=== PATIENT | female | born 1940 | race Caucasian/White ===

== ENCOUNTER 2017-11-01 11:39 | Emergency (ER) | payer OTHER, MEDICAID ==
[~2017-11-01] VITALS: Ht 162.6 cm; Wt 117.9 kg
[2017-11-01 13:15] LABS: Basophils # (auto) 0.1 uL; Basophils % (auto) 0.8 % (0.0-2.0); Eosinophils # (auto) 0.1 uL; Eosinophils % (auto) 0.9 % (0.0-7.0); Hematocrit 43.7 % (36.0-46.0); Hemoglobin 14.6 g/dL (12.2-16.2); Lymphocytes # (auto) 1.1 uL; Lymphocytes % (auto) 13.3 % (10.0-50.0); Mean Corpuscular Hemoglobin 31.8 pg (28.0-32.0); Mean Corpuscular Hgb Conc. 33.5 g/dL (32.0-36.0); Mean Corpuscular Volume 95.1 fL (80.0-100.0); Monocytes # (auto) 0.6 uL; Monocytes % (auto) 8.1 % (0.0-12.0); Neutrophils # (auto) 6.1 uL; Neutrophils % (auto) 76.9 % (37.0-80.0); Nucleated Red Blood Cells % 0.1 %; Platelet Count (auto) 194 10^3/uL (140-450); Red Cell Distribution Width 15.6 % (11.8-14.3)
[2017-11-01 13:23] LABS: INR 1.34 (0.9-1.15); Prothrombin Time 14.1 sec (9.27-12.13)
[2017-11-01 13:35] LABS: Alanine Aminotransferase 26 U/L (13-56); Albumin 3.2 g/dL (3.4-5.0); Alkaline Phosphatase 65 U/L (45-117); Anion Gap 9 (5-15); Aspartate Aminotransferase 22 U/L (15-37); BUN/Creatinine Ratio 17.6; Blood Urea Nitrogen 18 mg/dL (7-18); Calcium 8.6 mg/dL (8.5-10.1); Carbon Dioxide 24 mmol/L (21-32); Chloride 104 mmol/L (98-107); GFR African American 67 mL/min; GFR Non-African American 56 mL/min; Glucose 99 mg/dL (74-106); Magnesium 2.5 mg/dL (1.6-2.6); Potassium 3.9 mmol/L (3.5-5.1); Sodium 137 mmol/L (136-145); Total Protein 7.6 g/dL (6.4-8.2)
[2017-11-01] MEDS ORDERED: ACETAMINOPHEN 325 MG TAB PO ONE (19:15)
[2017-11-01 20:48] VITALS: BP 132/68
== END 2017-11-01 20:57 | disposition home or self-care (01) ==
LOC: ER 11:39
DX: S16.1XXA Strain of muscle, fascia and tendon at neck level, initial encounter (principal); R10.2 Pelvic and perineal pain; M54.5 Low back pain; I48.91 Unspecified atrial fibrillation; E78.5 Hyperlipidemia, unspecified; I10 Essential (primary) hypertension; Z88.8 Allergy status to other drugs, medicaments and biological substances; Z90.710 Acquired absence of both cervix and uterus; W01.0XXA Fall on same level from slipping, tripping and stumbling without subsequent striking against object, initial encounter; Y93.01 Activity, walking, marching and hiking; Y99.8 Other external cause status; Y92.89 Other specified places as the place of occurrence of the external cause
CPT/HCPCS: 36415; 70450; 71046; 72100; 72125; 72192; 73502; 80053; 83735; 84484; 85025; 85610; 93005

== ENCOUNTER 2021-09-08 11:16 | Emergency (ER) | payer OTHER, MEDICAID ==
[~2021-09-08] VITALS: Ht 160 cm; Wt 113.4 kg
[2021-09-08] MEDS ORDERED: HYDROcodone-ACET 5/325MG TAB PO ONE (11:45)
[2021-09-08 12:06] VITALS: BP 144/87
[2021-09-08] MEDS ORDERED: IBUP800T27 PO (15:05)
== END 2021-09-08 18:23 | disposition home or self-care (01) ==
LOC: EDBD 11:16 → ER 11:16
DX: S00.83XA Contusion of other part of head, initial encounter (principal); M17.0 Bilateral primary osteoarthritis of knee; M25.462 Effusion, left knee; M25.461 Effusion, right knee; E78.5 Hyperlipidemia, unspecified; I10 Essential (primary) hypertension; Z90.710 Acquired absence of both cervix and uterus; W18.39XA Other fall on same level, initial encounter; Y93.89 Activity, other specified; Y92.89 Other specified places as the place of occurrence of the external cause; Y99.8 Other external cause status
CPT/HCPCS: 70450; 70486; 73560; 93005

== ENCOUNTER 2022-04-24 18:23 | Inpatient (IN) | payer OTHER, MEDICAID ==
[~2022-04-24] VITALS: Ht 162.6 cm; Wt 114.5 kg
[~2022-04-24 18:23] MED LIST: IBUP800T27 PO
[2022-04-24] MEDS ORDERED: KETOROLAC TROMETH 30 MG/ML 1ML VIAL IV ONE (21:30)
[2022-04-24] MEDS ORDERED: DexAMETHasone SOD PHOS 10MG/1ML VIAL INJ IV ONE (21:30)
[2022-04-24] MEDS ORDERED: MORPHINE SULFATE 4 MG/ML SYR/VIAL IV ONE (23:30)
[2022-04-25] MEDS ORDERED: HYDROcodone-ACET 5/325MG TAB PO PRN (00:45)
[2022-04-25] MEDS ORDERED: ACETAMINOPHEN 325 MG TAB PO PRN (00:45)
[2022-04-25] MEDS ORDERED: ONDANSETRON HCL 4 MG/2 ML VIAL IV PRN (00:45)
[2022-04-25] MEDS ORDERED: NITROGLYCERIN 0.4 MG SL TAB SL PRN (00:45)
[2022-04-25] MEDS ORDERED: DOCUSATE SOD 100 MG CAP PO PRN (00:45)
[2022-04-25] MEDS ORDERED: MORPHINE SULFATE INJ 2 MG/ml SYRG IV PRN ×2 (00:45)
[2022-04-25 02:07] LABS: Basophils # (auto) 0.1 10 ^3/uL (0-0.2); Basophils % (auto) 1.4 % (0.0-2.0); Eosinophils # (auto) 0.1 10 ^3/uL (0-0.8); Eosinophils % (auto) 0.8 % (0.0-7.0); Hemoglobin 13.2 g/dL (12.2-16.2); Lymphocytes # (auto) 1.1 10 ^3/uL (0.4-5.4); Lymphocytes % (auto) 16.1 % (10.0-50.0); Mean Corpuscular Hemoglobin 29.6 pg (28.0-32.0); Mean Corpuscular Hgb Conc. 32.1 g/dL (32.0-36.0); Mean Corpuscular Volume 92.4 fL (80.0-100.0); Monocytes # (auto) 0.2 10 ^3/uL (0-1.3); Monocytes % (auto) 2.9 % (0.0-12.0); Neutrophils # (auto) 5.3 10 ^3/uL (1.6-8.6); Neutrophils % (auto) 78.8 % (37.0-80.0); Nucleated Red Blood Cells % 0.2 %; Red Blood Cells 4.44 10^6/uL (4.0-5.20); Red Cell Distribution Width 15.2 % (11.8-14.3); White Blood Cell 6.7 10^3/uL (4.4-10.8)
[2022-04-25 02:11] LABS: Albumin 3.5 g/dL (3.4-5.0); BUN/Creatinine Ratio 27.7; Calcium 9.4 mg/dL (8.5-10.1); Potassium 4.3 mmol/L (3.5-5.1)
[2022-04-25 02:14] LABS: Bilirubin, Total 0.5 mg/dL (0.2-1.0); Total Protein 7.6 g/dL (6.4-8.2)
[2022-04-25] MEDS: SODIUM CHLOR 0.9% PF (SALINE LOCK) 10ML VIAL/SYR IV SCH ×3 (05:44→22:35)
[2022-04-25] MEDS ORDERED: LEVO88TA2 PO (09:07)
[2022-04-25] MEDS: FAMOTIDINE (10MG/ML) 2ML VL IV SCH (11:08)
[2022-04-25] MEDS: ZINC SULFATE 220mg CAP or TAB PO SCH (11:08)
[2022-04-25] MEDS: ASPirin 81 mg TAB PO SCH (11:08)
[2022-04-25] MEDS: ASCORBIC ACID 500 MG TAB PO SCH ×2 (11:08→22:31)
[2022-04-25] MEDS ORDERED: POTA-264 PO (13:09)
[2022-04-25] MEDS ORDERED: FURO1TAB33 PO (13:09)
[2022-04-25] MEDS ORDERED: ATEN50TA PO (13:09)
[2022-04-25] MEDS ORDERED: RIVA20TA PO (13:09)
[2022-04-25] MEDS ORDERED: AMLO-489 PO (13:09)
[2022-04-25] MEDS ORDERED: TRAM50TA2 PO (13:09)
[2022-04-25] MEDS ORDERED: LOSA-69 PO (13:09)
[2022-04-25] MEDS ORDERED: BACL10TA PO (13:09)
[2022-04-25 18:55] VITALS: BP 130/73
[2022-04-25] MEDS ORDERED: ALPR0.25 PO (20:31)
[2022-04-25 22:00] VITALS: BP 136/71
[2022-04-25] MEDS: traMADol HCL 50 MG TAB PO SCH (22:29)
[2022-04-25] MEDS: BACLOFEN 10 MG TAB PO SCH (22:30)
[2022-04-25] MEDS: IBUPROFEN 800 MG TAB PO SCH (22:30)
[2022-04-25] MEDS: LOSARTAN POTASSIUM 50 MG TAB PO SCH (22:30)
[2022-04-25] MEDS: ATENOLOL 50 MG TAB PO SCH (22:31)
[2022-04-26 05:00] VITALS: BP 124/69
[2022-04-26 06:30] LABS: Basophils # (auto) 0.1 10 ^3/uL (0-0.2); Basophils % (auto) 1.1 % (0.0-2.0); Eosinophils # (auto) 0 10 ^3/uL (0-0.8); Eosinophils % (auto) 0.1 % (0.0-7.0); Hematocrit 37.6 % (36.0-46.0); Hemoglobin 12.8 g/dL (12.2-16.2); Lymphocytes # (auto) 1.5 10 ^3/uL (0.4-5.4); Lymphocytes % (auto) 14.1 % (10.0-50.0); Mean Corpuscular Hemoglobin 30.5 pg (28.0-32.0); Mean Corpuscular Volume 89.6 fL (80.0-100.0); Monocytes # (auto) 0.5 10 ^3/uL (0-1.3); Monocytes % (auto) 4.6 % (0.0-12.0); Neutrophils # (auto) 8.5 10 ^3/uL (1.6-8.6); Neutrophils % (auto) 80.1 % (37.0-80.0); Nucleated Red Blood Cells % 0.2 %; Red Cell Distribution Width 14.8 % (11.8-14.3); White Blood Cell 10.6 10^3/uL (4.4-10.8)
[2022-04-26] MEDS: IBUPROFEN 800 MG TAB PO SCH ×2 (06:38→14:00)
[2022-04-26] MEDS: SODIUM CHLOR 0.9% PF (SALINE LOCK) 10ML VIAL/SYR IV SCH ×2 (06:38→15:21)
[2022-04-26] MEDS ORDERED: LEVOTHYROXINE SODIUM 88 MCG TAB PO SCH (07:00)
[2022-04-26 07:01] LABS: Potassium 4.7 mmol/L (3.5-5.1)
[2022-04-26 07:07] LABS: Albumin 3.1 g/dL (3.4-5.0); BUN/Creatinine Ratio 31.2; Calcium 9.2 mg/dL (8.5-10.1)
[2022-04-26 07:10] LABS: Bilirubin, Total 0.7 mg/dL (0.2-1.0); Total Protein 6.8 g/dL (6.4-8.2)
[2022-04-26 08:00] VITALS: BP 139/64
[2022-04-26 08:30] VITALS: BP 139/64
[2022-04-26] MEDS: ZINC SULFATE 220mg CAP or TAB PO SCH (09:34)
[2022-04-26] MEDS: ASCORBIC ACID 500 MG TAB PO SCH (09:34)
[2022-04-26] MEDS: traMADol HCL 50 MG TAB PO SCH (09:35)
[2022-04-26] MEDS: BACLOFEN 10 MG TAB PO SCH (09:36)
[2022-04-26] MEDS: LOSARTAN POTASSIUM 50 MG TAB PO SCH (09:36)
[2022-04-26] MEDS: ASPirin 81 mg TAB PO SCH (09:37)
[2022-04-26] MEDS: ATENOLOL 50 MG TAB PO SCH (09:38)
[2022-04-26] MEDS: FAMOTIDINE (10MG/ML) 2ML VL IV SCH (09:39)
[2022-04-26] MEDS ORDERED: RIVAROXABAN 20 MG TAB PO SCH (10:00)
[2022-04-26] MEDS ORDERED: amLODIPine BESYLATE 5 MG TAB PO SCH (10:00)
[2022-04-26] MEDS ORDERED: POTASSIUM CHL 10 Meq TABLET PO SCH (10:00)
[2022-04-26] MEDS ORDERED: FUROSEMIDE 20 MG TAB PO SCH (10:00)
[2022-04-26 12:30] VITALS: BP 128/68
[2022-04-26 16:15] VITALS: BP 113/44
[2022-04-26 16:45] VITALS: BP 134/61
== END 2022-04-26 19:00 | disposition home health service (06) | DRG 552 ==
LOC: ER 18:23 → EDUNIT# 18:23 → EDBD 18:23 → OVERFLOW 04-25 00:36 → WEST WING 04-25 18:48
PROVIDERS: ADMIT Nurse Practitioner Family; ATTEND Internal Medicine
DX: M54.9 Dorsalgia, unspecified (principal); I48.20 Chronic atrial fibrillation, unspecified; I10 Essential (primary) hypertension; E78.5 Hyperlipidemia, unspecified; G89.29 Other chronic pain; Z20.822 Contact with and (suspected) exposure to COVID-19; Z90.710 Acquired absence of both cervix and uterus
CPT/HCPCS: 36415; 72125; 80053; 85025; 87426; 96374; 96375; G0378; J1100; J1885; J3490

== ENCOUNTER 2022-10-03 10:09 | Emergency (ER) | payer OTHER, MEDICAID ==
[~2022-10-03] VITALS: Ht 162.6 cm; Wt 81.8 kg
[~2022-10-03 10:09] MED LIST changes: +ALPR0.25 PO; +AMLO1TAB22 PO; +ATEN50TA PO; +BACL10TA PO; +FURO1TAB33 PO; -IBUP800T27 PO; +LEVO88TA2 PO; +LOSA50TA46 PO; +POTA-264 PO; +RIVA20TA PO; +TRAM50TA2 PO
[2022-10-03 10:45] LABS: Basophils # (auto) 0.1 10 ^3/uL (0-0.2); Basophils % (auto) 1.3 % (0.0-2.0); Eosinophils # (auto) 0.1 10 ^3/uL (0-0.8); Eosinophils % (auto) 1.4 % (0.0-7.0); Hematocrit 41.5 % (36.0-46.0); Hemoglobin 13.8 g/dL (12.2-16.2); Lymphocytes # (auto) 1.7 10 ^3/uL (0.4-5.4); Lymphocytes % (auto) 31.2 % (10.0-50.0); Mean Corpuscular Hemoglobin 30.3 pg (28.0-32.0); Mean Corpuscular Hgb Conc. 33.3 g/dL (32.0-36.0); Mean Corpuscular Volume 90.9 fL (80.0-100.0); Monocytes # (auto) 0.4 10 ^3/uL (0-1.3); Monocytes % (auto) 7.5 % (0.0-12.0); Neutrophils # (auto) 3.3 10 ^3/uL (1.6-8.6); Neutrophils % (auto) 58.6 % (37.0-80.0); Nucleated Red Blood Cells % 0.1 %; Red Blood Cells 4.56 10^6/uL (4.0-5.20); Red Cell Distribution Width 14.7 % (11.8-14.3); White Blood Cell 5.6 10^3/uL (4.4-10.8)
[2022-10-03 10:49] VITALS: PULSE 68; RESP 18; TEMP 98.2; O2SAT 97
[2022-10-03 10:57] LABS: Albumin 3.7 g/dL (3.4-5.0); Calcium 8.8 mg/dL (8.5-10.1); Potassium 3.9 mmol/L (3.5-5.1)
[2022-10-03 11:00] LABS: BUN/Creatinine Ratio 21.6 (10.0-20.0); Bilirubin, Total 0.8 mg/dL (0.2-1.0)
[2022-10-03 11:10] LABS: INR 1.52 (0.9-1.15); Partial Thromboplastin Time 40.6 SEC (24.5-34.5)
[2022-10-03] MEDS ORDERED: CYCLOBENZAPRINE HCL 10 MG TAB PO ONE (11:30)
[2022-10-03] MEDS ORDERED: ACETAMINOPHEN 325 MG TAB PO ONE (11:30)
[2022-10-03] MEDS ORDERED: PRED20TA2 PO (12:01)
[2022-10-03] MEDS ORDERED: CYCL-611 PO (12:01)
[2022-10-03 12:55] VITALS: BP 161/73; PULSE 87; RESP 11; O2SAT 99
== END 2022-10-03 13:09 | disposition home or self-care (01) ==
LOC: ER 10:09 → EDBD 10:09 → ER 12:56
DX: R07.89 Other chest pain (principal); I10 Essential (primary) hypertension; E78.5 Hyperlipidemia, unspecified; I48.91 Unspecified atrial fibrillation; E03.9 Hypothyroidism, unspecified; Z90.710 Acquired absence of both cervix and uterus; Z88.8 Allergy status to other drugs, medicaments and biological substances; Z79.899 Other long term (current) drug therapy
CPT/HCPCS: 36415; 71045; 71250; 80053; 83880; 84484; 85025; 85610; 85730; 93005

== ENCOUNTER 2023-09-21 16:15 | Emergency (ER) | payer OTHER, MEDICAID ==
[~2023-09-21] VITALS: Ht 167.6 cm; Wt 113.6 kg
[~2023-09-21 16:15] MED LIST changes: +CYCL-611 PO; +LOSA-534 PO; -LOSA50TA46 PO; +PRED20TA2 PO
[2023-09-21 17:46] LABS: Basophils # (auto) 0.1 10 ^3/uL (0-0.2); Basophils % (auto) 0.9 % (0.0-2.0); Eosinophils # (auto) 0.1 10 ^3/uL (0-0.8); Eosinophils % (auto) 1.6 % (0.0-7.0); Hematocrit 37.5 % (36.0-46.0); Hemoglobin 12.6 g/dL (12.2-16.2); Lymphocytes # (auto) 1.5 10 ^3/uL (0.4-5.4); Lymphocytes % (auto) 25.1 % (10.0-50.0); Mean Corpuscular Hgb Conc. 33.7 g/dL (32.0-36.0); Mean Corpuscular Volume 94.9 fL (80.0-100.0); Monocytes # (auto) 0.3 10 ^3/uL (0-1.3); Monocytes % (auto) 5.7 % (0.0-12.0); Neutrophils % (auto) 66.7 % (37.0-80.0); Nucleated Red Blood Cells % 0.1 %; Red Blood Cells 3.95 10^6/uL (4.0-5.20)
[2023-09-21 18:07] LABS: Chloride 108 mmol/L (98-107); Potassium 4.3 mmol/L (3.5-5.1); Sodium 139 mmol/L (136-145)
[2023-09-21 18:08] LABS: Anion Gap 6 (5-15); Calcium 9.4 mg/dL (8.7-10.4); Carbon Dioxide 25 mmol/L (20-30)
[2023-09-21 18:13] LABS: BUN/Creatinine Ratio 19.1 (10.0-20.0); Blood Urea Nitrogen 17 mg/dL (9-23); Glucose 108 mg/dL (74-106)
[2023-09-21] MEDS: SODIUM CHLORIDE 0.9% 1,000 ML IV ONE (19:00)
[2023-09-21 19:01] VITALS: PULSE 82; RESP 19; O2SAT 97
[2023-09-21 19:25] VITALS: PULSE 79; RESP 14; O2SAT 92
[2023-09-21] MEDS: LABETALOL HCL 20 MG/4 ML VL IV ONE (20:16)
[2023-09-21] MEDS: ALBUTEROL SULF 2.5 MG/0.5ML(0.5%) NEB SOLN NEB ONE (20:53)
[2023-09-21] MEDS: IPRATROPIUM BROM 0.5 MG/2.5ML INH SOL NEB ONE (20:54)
[2023-09-21] MEDS: ONDANSETRON ODT 4 MG TAB PO ONE (21:15)
[2023-09-21] MEDS: ACETAMINOPHEN 325 MG TAB PO ONE (21:16)
[2023-09-21 21:25] VITALS: TEMP 97.8
[2023-09-22] VITALS: BP 154/74; PULSE 87; RESP 16; O2SAT 94
== END 2023-09-22 01:06 | disposition home or self-care (01) ==
LOC: ER 16:15 → EDBD 16:15 → ER 09-22 01:06
DX: E86.0 Dehydration (principal); R11.2 Nausea with vomiting, unspecified; I10 Essential (primary) hypertension; I48.91 Unspecified atrial fibrillation; E78.5 Hyperlipidemia, unspecified; Z90.710 Acquired absence of both cervix and uterus; Z88.8 Allergy status to other drugs, medicaments and biological substances; Z79.899 Other long term (current) drug therapy
CPT/HCPCS: 36415; 71045; 76705; 80048; 84484; 85025; 93005; 94640; 96361; 96374; 99285; J7030; J7644

== ENCOUNTER 2023-09-23 20:14 | Emergency (ER) | payer OTHER, MEDICAID ==
[~2023-09-23] VITALS: Ht 162.6 cm; Wt 104.0 kg
[2023-09-23] MEDS: SODIUM CHLORIDE 0.9% 1,000 ML IV ONE (20:30)
[2023-09-23 20:55] VITALS: RESP 12; O2SAT 96
[2023-09-23 20:56] LABS: Basophils # (auto) 0.1 10 ^3/uL (0-0.2); Basophils % (auto) 1.3 % (0.0-2.0); Eosinophils # (auto) 0.1 10 ^3/uL (0-0.8); Eosinophils % (auto) 2.1 % (0.0-7.0); Hematocrit 39.3 % (36.0-46.0); Hemoglobin 13.2 g/dL (12.2-16.2); Lymphocytes % (auto) 31.6 % (10.0-50.0); Mean Corpuscular Hemoglobin 31.7 pg (28.0-32.0); Mean Corpuscular Hgb Conc. 33.5 g/dL (32.0-36.0); Mean Corpuscular Volume 94.6 fL (80.0-100.0); Monocytes # (auto) 0.5 10 ^3/uL (0-1.3); Monocytes % (auto) 8.1 % (0.0-12.0); Neutrophils # (auto) 3.7 10 ^3/uL (1.6-8.6); Neutrophils % (auto) 56.9 % (37.0-80.0); Red Blood Cells 4.16 10^6/uL (4.0-5.20); Red Cell Distribution Width 13.7 % (11.8-14.3); White Blood Cell 6.4 10^3/uL (4.4-10.8)
[2023-09-23 21:10] LABS: INR 1.25 (0.9-1.15); Partial Thromboplastin Time 31.6 SEC (24.5-34.5)
[2023-09-23 21:12] LABS: Alanine Aminotransferase 29 U/L (7-40); Albumin 4.1 g/dL (3.2-4.8); Alkaline Phosphatase 82 U/L (46-116); Anion Gap 7 (5-15); Aspartate Aminotransferase 30 U/L (13-40); BUN/Creatinine Ratio 18.3 (10.0-20.0); Bilirubin, Total 0.7 mg/dL (0.2-1.0); Blood Urea Nitrogen 20 mg/dL (9-23); Calcium 9.4 mg/dL (8.7-10.4); Carbon Dioxide 26 mmol/L (20-30); Chloride 105 mmol/L (98-107); Glucose 84 mg/dL (74-106); Potassium 4.3 mmol/L (3.5-5.1); Sodium 138 mmol/L (136-145); Total Protein 6.8 g/dL (5.7-8.2)
[2023-09-23 22:30] LABS: Urine Bacteria None Seen /hpf (None Seen)
[2023-09-23 22:47] LABS: Urine Blood Negative /uL (Negative); Urine Clarity Clear (Clear); Urine Hyaline Cast FEW /lpf (0 - 2); Urine Mucus FEW (None Seen); Urine Protein, UAD Negative (Negative); Urine Specific Gravity 1.006 (1.001-1.035); Urine Urobilinogen Normal (Negative); Urine WBC 3 /hpf (0 - 5); Urine pH 5.5 (5.0-9.0)
[2023-09-23 22:51] LABS: Urine Color STRAW (Yellow)
[2023-09-24] VITALS: BP 130/47; PULSE 74; RESP 21; TEMP 97.8; O2SAT 97
[2023-09-24] MEDS ORDERED: MECL25CH85 PO (01:11)
== END 2023-09-24 02:11 | disposition home or self-care (01) ==
LOC: ER 20:14 → EDBD 20:14 → ER 09-24 02:11
DX: R42 Dizziness and giddiness (principal); I10 Essential (primary) hypertension; Z88.8 Allergy status to other drugs, medicaments and biological substances; Z79.52 Long term (current) use of systemic steroids; Z79.899 Other long term (current) drug therapy
CPT/HCPCS: 36415; 70450; 74176; 80053; 81001; 84484; 85025; 85610; 85730; 93005; 96360; 99284; J7030

== ENCOUNTER 2024-03-08 16:51 | Inpatient (IN) | payer OTHER, MEDICAID ==
[~2024-03-08] VITALS: Ht 162.6 cm; Wt 100.0 kg
[~2024-03-08 16:51] MED LIST changes: +MECL25CH85 PO
[2024-03-08 17:07] VITALS: BP 177/80; PULSE 84; RESP 18; O2SAT 97
[2024-03-08] MEDS ORDERED: METOCLOPRAMIDE HCL 5MG/ml INJ 2ml VIAL IV ONE (18:30)
[2024-03-08] MEDS ORDERED: SODIUM CHLORIDE 0.9% 1,000 ML IV ONE (18:30)
[2024-03-08] MEDS ORDERED: ACETAMINOPHEN 325 MG TAB PO ONE (18:30)
--- NOTE | 2024-03-08 18:48 | DVH ---
CHEST RADIOGRAPH Indication: ams, Technique: Frontal and lateral view of the chest was obtained Comparison: CS2 on DOS: 04/24/22, RKNE2 on DOS: 09/08/21 FINDINGS: Lines and Tubes: None Lungs: Clear Pleura: No effusion. No pneumothorax. Cardiomediastinal contours: Unremarkable Bones: Unremarkable IMPRESSION: 1. No evidence of acute disease.
--- NOTE | 2024-03-08 18:57 | DVH ---
EXAM: CT HEAD WITHOUT CONTRAST INDICATION: HEADACHE TECHNIQUE: CT of the head without intravenous contrast. Radiation Dose : 1. Head: CT Dose: CTDI volume is 54 mGy. Dose-length product is 860 mGy*cm The dose indicators for CT are the volume Computed Tomography (CT) Dose Index (CTDIvol) and the Dose Length Product (DLP), and are measured in units of mGy and mGy-cm, respectively. These indicators are not patient dose, but values generated from the CT scanner acquisition factors. The report includes radiation exposure data for exposures received during this examination. COMPARISON: CT HEAD WITHOUT CONTRAST on DOS: 09/23/23, CT CHEST WITHOUT CONTRAST on DOS: 10/03/22, CERV ICAL WITHOUT CONTRAST on DOS: 04/24/22 FINDINGS: There is no evidence of acute intracranial hemorrhage, extra-axial collection, mass effect, midline s hift, herniation or hydrocephalus. The ventricles, sulci and cisterns are age appropriate. The blair-white differentiation is intact. Patchy periventricular and subcortical white matter hypoattenuation is nonspecific but may be related to small vessel ischemic disease. The visualized paranasal sinuses and mastoid air cells are clear. The surrounding soft tissues and osseous structures are unremarkable. IMPRESSION: No acute intracranial abnormality. Moderate chronic small vessel ischemic disease and age related atr ophy. Partially empty sella.
--- NOTE | 2024-03-08 19:12 | ED.PDOC ---
HPI (NEURO) HPI Comments 83y F who presents to the ED via EMS for chief complaint of generalized weakness. Pt states she has been having frontal headache since 1 days prior and states she has been having increased generalized weakness since. Pt states today, she was on phone with daughter who states she noted pt was confused on the phone and EMS was called to the scene. Pt now in the ED, is alert and oriented x 4 and able to answer all questions. Pt has no changes in vision, gait or speech are noted. Pt has noted history of TIA's and states she takes blood thinner Xarelto for history of AFIB. Pt otherwise denies any other symptoms at this time. Chief Complaint: Headache Time Seen by MD: 19:08 Primary Care Provider: none Reviewed Notes: Nurses Notes Information Source: Patient, DrDominick Office, Emergency Med Personnel Mode of Arrival: EMS Brought in by: EMS Past Medical History PAST MEDICAL HISTORY: AFIB, High Lipids, HTN Surgical History: Hysterectomy BODY FITTER History: Denies all BODY FITTER Hx Family History Family History: Reviewed,noncontributory to illness Social History Smoker: Non-Smoker Alcohol: Denies ETOH Use Drugs: Denies Drug Use Lives In: Home Constitutional: reports: malaise, weakness; denies: chills, diaphoresis, fatigue, fever, sweats, others EENTM: denies: blurred vision, double vision, ear bleeding, ear discharge, ear drainage, ear pain, ear ringing, eye pain, eye redness, hearing loss, mouth pain, mouth swelling, nasal discharge, nose bleeding, nose congestion, nose pain, photophobia, tearing, throat pain, throat swelling, voice changes, others Respiratory: denies: cough, hemoptysis, orthopnea, SOB at rest, shortness of breath, SOB with excertion, stridor, wheezing, others Cardiovascular: denies: chest pain, dizzy spells, diaphoresis, Dyspnea on exertion, edema, irregular heart beat, left arm pain, lightheadedness, palpitations, PND, syncope, others Gastrointestinal: denies: abdomen distended, abdominal pain, blood streaked bowels, constipated, diarrhea, dysphagia, difficulty swallowing, hematemesis, melena, nausea, poor appetite, poor fluid intake, rectal bleeding, rectal pain, vomiting, others Genitourinary: denies: abnormal vagina bleeding, burning, dyspareunia, dysuria, flank pain, frequency, hematuria, incontinence, pain, , vagina discharge, urgency, others Neurological: reports: headache; denies: dizziness, fainting, left sided numbness, left sided weakness, numbness, paresthesia, pre-existing deficit, right sided numbness, right sided weakness, seizure, speech problems, tingling, tremors, weakness, others Musculoskeletal: denies: back pain, gout, joint pain, joint swelling, muscle pain, muscle stiffness, neck pain, others Integumetry: denies: bruises, change in color, change in hair/nails, dryness, laceration, lesions, lumps, rash, wounds, others Allergic/Immunocompromised: denies: Difficulty Healing, Frequent Infections, Hives, Itching, others Hematologic/Lymphatic: denies: anemia, blood clots, easy bleeding, easy bruising, swollen glands, others Endocrine: denies: excessive hunger, excessive sweating, excessive thirst, excessive urination, flushing, intolerance to cold, intolerance to heat, unexplained weight gain, unexplained weight loss, others Psychiatric: denies: anxiety, bipolar disorder, depression, hopeless, panic disorder, schizophrenia, sleepless, suicidal, others All Other Systems: Reviewed and Negative Physical Exam General Appearance: Other (Indicate ill-appearing) HEENT: PERRL/EOMI Neck: Non-Tender Respiratory: No Accessory Muscle Use Cardiovascular: Other (Irregular) Breast Exam: Deferred Gastrointestinal: Non Tender Genitalia: Deferred Pelvic: Deferred Rectal: Deferred Extremities: Non-tender Neurologic: No Motor Deficits Cerebellar Function: NOT DONE Reflexes: NOT DONE Skin: Dry, Normal Color, Warm Lymphatic: No Adenopathy Was a procedure done? Was a procedure done?: No Differential Diagnosis (SZ) CVA: CVA, Encephalopathy, TIA General Weakness: Anemia, CVA, Dehydration, Electrolyte imbalance, Encephalopathy, Hypotension, Hypovolemia, TIA, Vertigo: central, Vertigo: peripheral, Vestibular neuronitis Headache: Migraine X-Ray, Labs, Meds, VS Vital Signs Date Time Temp Pulse Resp B/P (MAP) Pulse Ox O2 Delivery O2 Flow Rate FiO2 03/08/24 17:07 98.1 84 18 177/80 (112) 97 Lab Test 03/08/24 20:02 03/08/24 19:13 Range/Units Troponin I High Sensitivity 10 10 </=34 ng/L White Blood Count 7.1 4.4-10.8 10^3/uL Red Blood Count 4.69 4.0-5.20 10^6/uL Hemoglobin 14.8 12.2-16.2 g/dL Hematocrit 44.5 36.0-46.0 % Mean Corpuscular Volume 94.9 80.0-100.0 fL Mean Corpuscular Hemoglobin 31.6 28.0-32.0 pg Mean Corpuscular Hemoglobin Concent 33.3 32.0-36.0 g/dL Red Cell Distribution Width 14.2 11.8-14.3 % Platelet Count 218 140-450 10^3/uL Mean Platelet Volume 8.7 6.9-10.8 fL Neutrophils (%) (Auto) 72.6 37.0-80.0 % Lymphocytes (%) (Auto) 20.0 10.0-50.0 % Monocytes (%) (Auto) 5.1 0.0-12.0 % Eosinophils (%) (Auto) 1.1 0.0-7.0 % Basophils (%) (Auto) 1.2 0.0-2.0 % Neutrophils # (Auto) 5.1 1.6-8.6 10 ^3/uL Lymphocytes # (Auto) 1.4 0.4-5.4 10 ^3/uL Monocytes # (Auto) 0.4 0-1.3 10 ^3/uL Eosinophils # (Auto) 0.1 0-0.8 10 ^3/uL Basophils # (Auto) 0.1 0-0.2 10 ^3/uL Nucleated Red Blood Cells 0.0 % Sodium Level 138 136-145 mmol/L Potassium Level 4.5 3.5-5.1 mmol/L Chloride Level 105 98-107 mmol/L Carbon Dioxide Level 26 20-31 mmol/L Anion Gap 7 5-15 Blood Urea Nitrogen 30 H 9-23 mg/dL Creatinine 1.10 H 0.550-1.02 mg/dL Glomerular Filtration Rate Calc 49 >90 mL/min BUN/Creatinine Ratio 27.3 H 10.0-20.0 Serum Glucose 103 74-106 mg/dL Calcium Level 10.4 8.7-10.4 mg/dL [facility] [id number] [facility] [address] Ph: [phone] DIAGNOSTIC IMAGING Diagnostic Imaging Report : [id number] Signed PATIENT: ANALILIA GARLAND ACCT: [id number] UNIT: [id number] : 1940 LOC: ER ROOM / BED: / AGE / SEX: 83 / F ADM STATUS: REG ER SERVICE 1826 ORDERING PHYSICIAN: KAYLEIGH EDWARDS MD PROCEDURE(s): CXR2 - CHEST TWO VIEWS ROUTINE REASON: ams, ORDER NUMBER(s): [id number], ACCESSION NUMBER(s): [id number] CHEST RADIOGRAPH Indication: ams, Technique: Frontal and lateral view of the chest was obtained Comparison: CS2 on DOS: 04/24/22, RKNE2 on DOS: 09/08/21 FINDINGS: Lines and Tubes: None Lungs: Clear Pleura: No effusion. No pneumothorax. Cardiomediastinal contours: Unremarkable Bones: Unremarkable IMPRESSION: 1. No evidence of acute disease. ATED BY: GLORIA MCINTYRE MD DICTATED DATE/TIME: 03/08/241845 SIGNED BY: GLORIA MCINTYRE MD SIGNED DATE/TIME: 03/08/241845 CC: [place] [id number] Ph: [phone] DIAGNOSTIC IMAGING Diagnostic Imaging Report : [id number] Signed PATIENT: ANALILIA GARLAND ACCT: [id number] UNIT: [id number] : 1940 LOC: ER ROOM / BED: / AGE / SEX: 83 / F ADM STATUS: REG ER SERVICE 1745 ORDERING PHYSICIAN: LILLIAM GUERRA PROCEDURE(s): HWOCT - HEAD WITHOUT CONTRAST REASON: HEADACHE ORDER NUMBER(s): [id number], ACCESSION NUMBER(s): [id number] EXAM: CT HEAD WITHOUT CONTRAST INDICATION: HEADACHE TECHNIQUE: CT of the head without intravenous contrast. Radiation Dose : 1. Head: CT Dose: CTDI volume is 54 mGy. Dose-length product is 860 mGy*cm The dose indicators for CT are the volume Computed Tomography (CT) Dose Index (CTDIvol) and the Dose Length Product (DLP), and are measured in units of mGy and mGy-cm, respectively. These indicators are not patient dose, but values generated from the CT scanner acquisition factors. The report includes radiation exposure data for exposures received during this examination. COMPARISON: CT HEAD WITHOUT CONTRAST on DOS: 09/23/23, CT CHEST WITHOUT CONTRAST on DOS: 10/03/22, CERVICAL WITHOUT CONTRAST on DOS: 04/24/22 FINDINGS: There is no evidence of acute intracranial hemorrhage, extra-axial collection, mass effect, midline shift, herniation or hydrocephalus. The ventricles, sulci and cisterns are age appropriate. The blair-white differentiation is intact. Patchy periventricular and subcortical white matter hypoattenuation is nonspecific but may be related to small vessel ischemic disease. The visualized paranasal sinuses and mastoid air cells are clear. The surrounding soft tissues and osseous structures are unremarkable. IMPRESSION: No acute intracranial abnormality. Moderate chronic small vessel ischemic disease and age related atrophy. Partially empty sella. ATED BY: MONA PHILLIPS DO DICTATED DATE/TIME: 03/08/241853 SIGNED BY: MONA PHILLIPS DO SIGNED DATE/TIME: 03/08/241853 CC: Time of 1ST Reevaluation: 19:40 Reevaluation 1ST: Unchanged Patient Education/Counseling: Diagnosis, Treatment Family Education/Counseling: No Family Present Additional Information - I reviewed the following notes from patient's past medical encounters: - The following tests were ordered, and results were reviewed by me: (Labs, X- Ray, EKG): Ct head without contrast, BMP, CBC, troponinx3, UA, chest x-ray, - Additional information was gathered from interviewing the following independent Historian: (Family, Other Providers, EMT): EMS - I reviewed and agreed with the following test results read by other provider: (X-ray, CT, US): radiologist - I discussed treatments and results with medical personnel and: (consultants, family): none Departure 1 Departure Time of Disposition: 20:57 (Patient with now resolved slurred speech. Still having generalized weakness and headache. Patient's signs and symptoms concerning for TIA. We will admit patient for further workup) Impression: Primary Impression: Slurred speech Additional Impression: Generalized weakness Disposition: 09 ADMITTED INPATIENT Admit to: Med Surg Condition: Serious Critical Care Note Critical Care Time?: No Stability Stability form required: No Heart Score Heart Score: Heart Score Response (Comments) Value History Slightly Suspicious 0 EKG Normal 0 Age >65 2 Risk Factors 1 or 2 risk factors 1 Troponin Normal limit 0 Total 3 I personally scribed for KAYLEIGH EDWARDS MD ([email or web address]) on 03/08/24 at 19:12. Electronically submitted by Alejandro Dukes ([facility]). KAYLEIGH EDWARDS MD Mar 08, 2024 19:12
[2024-03-08 19:29] LABS: Chloride 105 mmol/L (98-107); Potassium 4.5 mmol/L (3.5-5.1); Sodium 138 mmol/L (136-145)
[2024-03-08 19:30] LABS: Anion Gap 7 (5-15); Basophils # (auto) 0.1 10 ^3/uL (0-0.2); Basophils % (auto) 1.2 % (0.0-2.0); Carbon Dioxide 26 mmol/L (20-31); Eosinophils # (auto) 0.1 10 ^3/uL (0-0.8); Eosinophils % (auto) 1.1 % (0.0-7.0); Hematocrit 44.5 % (36.0-46.0); Hemoglobin 14.8 g/dL (12.2-16.2); Lymphocytes # (auto) 1.4 10 ^3/uL (0.4-5.4); Mean Corpuscular Hemoglobin 31.6 pg (28.0-32.0); Mean Corpuscular Hgb Conc. 33.3 g/dL (32.0-36.0); Mean Corpuscular Volume 94.9 fL (80.0-100.0); Monocytes # (auto) 0.4 10 ^3/uL (0-1.3); Monocytes % (auto) 5.1 % (0.0-12.0); Neutrophils # (auto) 5.1 10 ^3/uL (1.6-8.6); Neutrophils % (auto) 72.6 % (37.0-80.0); Platelet Count (auto) 218 10^3/uL (140-450); Red Blood Cells 4.69 10^6/uL (4.0-5.20); Red Cell Distribution Width 14.2 % (11.8-14.3); White Blood Cell 7.1 10^3/uL (4.4-10.8)
[2024-03-08 19:31] LABS: Calcium 10.4 mg/dL (8.7-10.4)
[2024-03-08 19:35] LABS: Glucose 103 mg/dL (74-106)
[2024-03-08 19:36] LABS: BUN/Creatinine Ratio 27.3 (10.0-20.0); Blood Urea Nitrogen 30 mg/dL (9-23)
[2024-03-08] MEDS ORDERED: ONDANSETRON HCL 4 MG/2 ML VIAL IV PRN (22:15)
[2024-03-08] MEDS ORDERED: ACETAMINOPHEN 325 MG TAB PO PRN (22:15)
[2024-03-08] MEDS ORDERED: IOHEXOL 350 MG/ML 100ML IJ ONE (22:26)
[2024-03-08 23:11] LABS: Cholesterol 269 mg/dL (< 200); HDL Cholesterol 65 mg/dL (40-59); LDL Cholesterol 178 mg/dL (< 100); Triglycerides 264 mg/dL (< 150)
--- NOTE | 2024-03-09 01:29 | DVHHP2 ---
Admitting Diagnosis: TIA History of Present Illness History Source: Patient Exam Limitations: No limitations HPI Mrs. Rebeca Garcia is an 83 yo female with a history of a fib, hyperlipidemia , hypertension, TIA, CVA who presents with a chief complaint of generalized weakness. Pt states she has been having frontal headache since 1 days prior and states she has been having increased generalized weakness since. Pt states yesterday, she was on phone with daughter who states she noted pt was confused on the phone and EMS was called to the scene. Patient slurred speech resolved denies any headaches, dizziness, blurry vision. Patient admitted for further evaluation. Home Meds Active Scripts Meclizine HCl (Antivert) 25 Mg Chw, 25 MG PO QIDPRN, #20 TAB.CHEW Prov:VANESSA DILLON MD 09/24/23 Cyclobenzaprine HCl (Cyclobenzaprine Hydrochlo) 10 Mg Tab, 5 MG PO Q8HPRN PRN, #14 TAB Prov:YAKELIN GREWAL MD 10/03/22 Prednisone (Prednisone) 20 Mg Tab, 40 MG PO DAILY, #10 MG Prov:YAKELIN GREWAL MD 10/03/22 Reported Medications Alprazolam (Xanax) 0.25 Mg Tb, 1 TAB PO PRN, #30 TAB 04/25/22 Tramadol Hcl (Tramadol Hcl) 50 Mg Tab, 50 MG PO BID, MG 04/25/22 Potassium Chloride (K-Tabs) 10 Meq Tab, 10 MEQ PO DAILY, TAB 04/25/22 Baclofen (Baclofen) 10 Mg Tab, 10 MG PO BID, MG 04/25/22 Furosemide (Lasix) 20 Mg Tb, 1 TAB PO DAILY, #30 TAB 5 Refills 04/25/22 Rivaroxaban (XARELTO) 20 Mg Tab, 1 TAB PO DAILY, #30 TAB 11 Refills 04/25/22 Amlodipine Besylate (Amlodipine Besylate) 5 Mg Tab, 5 MG PO DAILY, MG 04/25/22 Atenolol (Atenolol) 50 Mg Tab, 50 MG PO BID, MG 04/25/22 Losartan Potassium (Losartan Potassium) 50 Mg Tab, 50 MG PO BID for 30 Days, MG 04/25/22 Levothyroxine Sodium (Synthroid) 88 Mcg Tab, 1 TAB PO DAILY, #30 TAB 5 Refills 04/25/22 Past Medical History Cardiac: AFIB, HTN, Hyperlipidemia Pulmonary: No pertinent Hx Central Nervous System: CVA, TIA GI: No pertinent Hx Hemotology/Oncology: No pertinent Hx Hepatobiliary: No pertinent Hx Psychiatric: No pertinent Hx Musculoskeletal: No pertinent Hx Rheumotologic: No pertinent Hx Infectious Disease: No peritnent Hx ENT: No pertinent Hx Renal/: No pertinent Hx Endocrine: No pertinent Hx Dermatology: No pertinent Hx Patient Family History: Patient reports no known family medical history. Review of Systems Constitutional: Weakness (generalized) Ears, Nose, & Throat: No symptom reported Eyes: No symptom reported Pulmonary/Respiratory: No symptom reported Cardiovascular: No symptom reported Gastrointestinal: No symptom reported Genitourinary: No symptom reported Musculoskeletal: No symptom reported Skin: No symptom reported Psychiatric: No symptom reported Endocrine: No symptom reported Hemotologic/Lymphatic: No symptom reported H&P Exam Vital Signs Vital Signs Date Time Temp Pulse Resp B/P (MAP) Pulse Ox O2 Delivery O2 Flow Rate FiO2 03/08/24 17:07 98.1 84 18 177/80 (112) 97 General Appeara: Well developed, Well nourished, Normal Appearance Head Exam: Normal inspection Neck Exam: Normal inspection, Non-tender, Normal alignment Eye Exam: bilateral eye Normal inspection, bilateral eye PERRL, bilateral eye EOMI Ear Exam: bilateral ear Auricle normal Nasal Exam: Normal inspection Mouth: Normal Inspection Pulmonary/Respiratory: Normal inspection, Normal breath sounds, Chest non- tender, Lungs clear Cardiovascular/Chest: Normal inspection, Regular rate, Normal Rhythm Peripheral Pulses: 2+ dorsalis pedis (R), 2+ dorsalis pedis (L), 2+ Radial (R), 2+ Radial (L) Abdominal Exam: Normal bowel sounds, Soft Rectal Exam: Deferred Pelvic Exam: Not done LEATHER TOOLER Exam: Normal hearing, Normal speech, PERRL Neuro/Mental St: Alert, Oriented Appearance: Appropriate appearance, Appropriate insight Thoughts/Psych: Normal thought pattern Skin Exam: Normal inspection, Normal color, Warm/dry Labs/Xrays Labs Test 03/08/24 20:02 03/08/24 19:13 Range/Units Troponin I High Sensitivity 10 </=34 ng/L Triglycerides Level 264 H < 150 mg/dL Cholesterol Level 269 H < 200 mg/dL LDL Cholesterol 178 H < 100 mg/dL HDL Cholesterol 65 H 40-59 mg/dL White Blood Count 7.1 4.4-10.8 10^3/uL Red Blood Count 4.69 4.0-5.20 10^6/uL Hemoglobin 14.8 12.2-16.2 g/dL Hematocrit 44.5 36.0-46.0 % Mean Corpuscular Volume 94.9 80.0-100.0 fL Mean Corpuscular Hemoglobin 31.6 28.0-32.0 pg Mean Corpuscular Hemoglobin Concent 33.3 32.0-36.0 g/dL Red Cell Distribution Width 14.2 11.8-14.3 % Platelet Count 218 140-450 10^3/uL Mean Platelet Volume 8.7 6.9-10.8 fL Neutrophils (%) (Auto) 72.6 37.0-80.0 % Lymphocytes (%) (Auto) 20.0 10.0-50.0 % Monocytes (%) (Auto) 5.1 0.0-12.0 % Eosinophils (%) (Auto) 1.1 0.0-7.0 % Basophils (%) (Auto) 1.2 0.0-2.0 % Neutrophils # (Auto) 5.1 1.6-8.6 10 ^3/uL Lymphocytes # (Auto) 1.4 0.4-5.4 10 ^3/uL Monocytes # (Auto) 0.4 0-1.3 10 ^3/uL Eosinophils # (Auto) 0.1 0-0.8 10 ^3/uL Basophils # (Auto) 0.1 0-0.2 10 ^3/uL Nucleated Red Blood Cells 0.0 % Sodium Level 138 136-145 mmol/L Potassium Level 4.5 3.5-5.1 mmol/L Chloride Level 105 98-107 mmol/L Carbon Dioxide Level 26 20-31 mmol/L Anion Gap 7 5-15 Blood Urea Nitrogen 30 H 9-23 mg/dL Creatinine 1.10 H 0.550-1.02 mg/dL Glomerular Filtration Rate Calc 49 >90 mL/min BUN/Creatinine Ratio 27.3 H 10.0-20.0 Serum Glucose 103 74-106 mg/dL Hemoglobin A1c 5.5 <5.7 % A1C Calcium Level 10.4 8.7-10.4 mg/dL Assessment/Plan Problem List: (1) TIA (transient ischemic attack) Plan 83 yo female with known history of a fib, hyperlipidemia, hypertension, TIA, CVA presents to the hospital with generalized weakness, slurred speech resolved. 1. TIA PLAN Admit Telemetry Cardiology consultation , 2D echo, ASA, Statin, Lipid panel, A1C level MRI Brain wo PT/OT evaluation Bedside swallow evaluation Aspiration precautions Discussed assessment and care plan with supervising MD. Plan discussed with: Patient, Other LEANN DUFFY TELECOMMUNICATION OPERATOR Mar 09, 2024 01:29
[2024-03-09] MEDS ORDERED: ASPirin-EC 81 mg tab PO SCH (10:00)
[2024-03-09] MEDS ORDERED: ENOXAPARIN SOD 40 MG/0.4 ML SYRINGE SC SCH (10:00)
[2024-03-09] MEDS ORDERED: FAMOTIDINE 20 MG TAB PO SCH (10:00)
[2024-03-09] MEDS ORDERED: ATORVASTATIN 20 MG TAB PO SCH (22:00)
== END 2024-03-08 22:31 | disposition left against medical advice (07) | DRG 69 ==
LOC: ER 16:51 → EDBD 16:51 → TELE 22:14 → ER 22:31 → TELE 22:31
PROVIDERS: ADMIT Nurse Practitioner Family; ATTEND Nurse Practitioner Family
DX: G45.9 Transient cerebral ischemic attack, unspecified (principal); I10 Essential (primary) hypertension; E78.5 Hyperlipidemia, unspecified; I48.91 Unspecified atrial fibrillation; Z90.710 Acquired absence of both cervix and uterus; Z86.73 Personal history of transient ischemic attack (TIA), and cerebral infarction without residual deficits
CPT/HCPCS: 36415; 70450; 71046; 80048; 80061; 83036; 84484; 85025; G0378

== ENCOUNTER 2024-06-12 12:35 | Inpatient (IN) | payer OTHER, MEDICAID ==
[~2024-06-12] VITALS: Ht 162.6 cm; Wt 110.0 kg
--- NOTE | 2024-06-12 12:48 | ED.PDOC ---
History of Present Illness HPI Comments 83 y/o F, presents to the ED for CC of ALOC. Per EMS, patient is coming from home where she was found to be disoriented by family members; last known normal was (06/10/24). EMS states, patient answers questions with a yes or no nod and is actively moaning in pain while holding her head; indicating possible headaches. Upon arrival to ED, patient is A&Ox2 no other symptoms or modifying factors obtainable at this time. Time Seen by MD: 12:40 Primary Care Provider: none Reviewed Notes: Nurses Notes, Senior Trainer Notes, Medications, Allergies Allergies: Coded Allergies: Doxycycline (Verified Allergy, Unknown, 10/03/22) Uncoded Allergies: CANDY INHIBITOR (Allergy, Unknown, 11/01/17) Home Meds Active Scripts Meclizine HCl (Antivert) 25 Mg Chw, 25 MG PO QIDPRN, #20 TAB.CHEW Prov:VANESSA DILLON MD 09/24/23 Cyclobenzaprine HCl (Cyclobenzaprine Hydrochlo) 10 Mg Tab, 5 MG PO Q8HPRN PRN, #14 TAB Prov:YAKELIN GREWAL MD 10/03/22 Prednisone (Prednisone) 20 Mg Tab, 40 MG PO DAILY, #10 MG Prov:YAKELIN GREWAL MD 10/03/22 Reported Medications Alprazolam (Xanax) 0.25 Mg Tb, 1 TAB PO PRN, #30 TAB 04/25/22 Tramadol Hcl (Tramadol Hcl) 50 Mg Tab, 50 MG PO BID, MG 04/25/22 Potassium Chloride (K-Tabs) 10 Meq Tab, 10 MEQ PO DAILY, TAB 04/25/22 Baclofen (Baclofen) 10 Mg Tab, 10 MG PO BID, MG 04/25/22 Furosemide (Lasix) 20 Mg Tb, 1 TAB PO DAILY, #30 TAB 5 Refills 04/25/22 Rivaroxaban (XARELTO) 20 Mg Tab, 1 TAB PO DAILY, #30 TAB 11 Refills 04/25/22 Amlodipine Besylate (Amlodipine Besylate) 5 Mg Tab, 5 MG PO DAILY, MG 04/25/22 Atenolol (Atenolol) 50 Mg Tab, 50 MG PO BID, MG 04/25/22 Losartan Potassium (Losartan Potassium) 50 Mg Tab, 50 MG PO BID for 30 Days, MG 04/25/22 Levothyroxine Sodium (Synthroid) 88 Mcg Tab, 1 TAB PO DAILY, #30 TAB 5 Refills 04/25/22 Information Source: Emergency Med Personnel Mode of Arrival: EMS Severity: Moderate Timing: Days Duration: Since onset Prehospital treatment: None Past Medical History PAST MEDICAL HISTORY: AFIB, High Lipids, HTN Surgical History: Hysterectomy BAIL BOND AGENT History: Denies all BAIL BOND AGENT Hx Family History Family History: Reviewed,noncontributory to illness Social History Smoker: Non-Smoker Alcohol: Denies ETOH Use Drugs: Denies Drug Use Lives In: Home Unable to Obtain due to: Altered Mental Status Physical Exam General Appearance: Obese, Other (PLEASANTLY CONFUSED ) HEENT: Normal ENT Inspection, Pharynx Normal, TMs Normal Neck: Full Range of Motion, Non-Tender, Normal, Normal Inspection Respiratory: Chest Non-Tender, Lungs Clear, No Accessory Muscle Use, No Respira tory Distress, Normal Breath Sounds Cardiovascular: No Edema, No JVD, No Murmur, No Gallop, Normal Peripheral Pulses, Regular Rate/Rhythm Breast Exam: Deferred Gastrointestinal: No Organomegaly, Non Tender, No Pulsatile Mass, Normal Bowel Sounds, Soft Genitalia: Deferred Pelvic: Deferred Rectal: Deferred Extremities: No calf tenderness, Normal capillary refill, Normal inspection, Normal range of motion, Non-tender, No pedal edema Musculoskeletal : Apperance: Normal Neurologic: Alert, seater grinder II-XII nml as Tested, No Motor Deficits, Normal Affect, Normal Mood, No Sensory Deficits Cerebellar Function: Normal Reflexes: Normal Skin: Dry, Normal Color, Warm Lymphatic: No Adenopathy Was a procedure done? Was a procedure done?: No Differential Dx Considerations may include: ALOC, UTI, HYPOGLYCEMIA, hypertensive emergency for the abnormality, infectious etiology, intracranial bleed X-Ray, Labs, Meds, VS Vital Signs Date Time Temp Pulse Resp B/P (MAP) Pulse Ox O2 Delivery O2 Flow Rate FiO2 06/12/24 13:50 80 06/12/24 13:20 97.6 06/12/24 13:02 Room Air* 0 21 06/12/24 13:02 97.6 70 14 197/68 (111) 96 97.6 06/12/24 12:49 71 06/12/24 12:43 98.4 77 16 207/74 (118) 100 98.4 Lab Test 06/12/24 13:42 06/12/24 13:02 Range/Units Troponin I High Sensitivity 7 8 </=34 ng/L White Blood Count 7.9 4.4-10.8 10^3/uL Red Blood Count 4.34 4.0-5.20 10^6/uL Hemoglobin 13.7 12.2-16.2 g/dL Hematocrit 41.6 36.0-46.0 % Mean Corpuscular Volume 95.8 80.0-100.0 fL Mean Corpuscular Hemoglobin 31.5 28.0-32.0 pg Mean Corpuscular Hemoglobin Concent 32.9 32.0-36.0 g/dL Red Cell Distribution Width 14.8 H 11.8-14.3 % Platelet Count 199 140-450 10^3/uL Mean Platelet Volume 8.6 6.9-10.8 fL Neutrophils (%) (Auto) 66.5 37.0-80.0 % Lymphocytes (%) (Auto) 24.5 10.0-50.0 % Monocytes (%) (Auto) 6.9 0.0-12.0 % Eosinophils (%) (Auto) 1.2 0.0-7.0 % Basophils (%) (Auto) 0.9 0.0-2.0 % Neutrophils # (Auto) 5.2 1.6-8.6 10 ^3/uL Lymphocytes # (Auto) 1.9 0.4-5.4 10 ^3/uL Monocytes # (Auto) 0.5 0-1.3 10 ^3/uL Eosinophils # (Auto) 0.1 0-0.8 10 ^3/uL Basophils # (Auto) 0.1 0-0.2 10 ^3/uL Nucleated Red Blood Cells 0.3 % Sodium Level 137 136-145 mmol/L Potassium Level 4.1 3.5-5.1 mmol/L Chloride Level 104 98-107 mmol/L Carbon Dioxide Level 24 20-31 mmol/L Anion Gap 9 5-15 Blood Urea Nitrogen 22 9-23 mg/dL Creatinine 1.01 0.550-1.02 mg/dL Glomerular Filtration Rate Calc 55 >90 mL/min BUN/Creatinine Ratio 21.8 H 10.0-20.0 Serum Glucose 113 H 74-106 mg/dL Lactic Acid Level 1.3 0.4-2.0 mmol/L Calcium Level 9.5 8.7-10.4 mg/dL Total Bilirubin 0.8 0.2-1.0 mg/dL Aspartate Amino Transferase (AST) 30 13-40 U/L Alanine Aminotransferase (ALT) 30 7-40 U/L Alkaline Phosphatase 85 46-116 U/L Total Protein 6.8 5.7-8.2 g/dL Albumin 4.5 3.2-4.8 g/dL Current Medications Medications (Trade) Dose Ordered Sig/Oralia Route Start Time Stop Time Status Last Admin Sodium Chloride 1,000 ml @ 1,000 mls/hr Q1H ONCE IV 06/12/24 12:45 06/12/24 13:44 DC 06/12/24 13:24 Ondansetron HCl (Zofran) 4 mg ONCE ONCE IV 06/12/24 12:45 06/12/24 12:46 DC 06/12/24 13:20 Acetaminophen (Tylenol Tablet) 650 mg ONCE ONCE PO 06/12/24 12:45 06/12/24 12:46 DC 06/12/24 13:20 [place] [address] Ph: [phone] DIAGNOSTIC IMAGING Diagnostic Imaging Report : [id number] Signed PATIENT: ANALILIA GARLAND ACCT: [id number] UNIT: [id number] : 1940 LOC: ER ROOM / BED: / AGE / SEX: 83 / F ADM STATUS: REG ER SERVICE [id number] ORDERING PHYSICIAN: KAYLEIGH EDWARDS MD PROCEDURE(s): CXRP - CHEST PORTABLE REASON: ams ORDER NUMBER(s): [id number], ACCESSION NUMBER(s): [id number] CHEST RADIOGRAPH Indication: ams Technique: Single frontal view of the chest was obtained Comparison: XY CHEST PORTABLE on DOS: 09/21/23, XY CHEST PORTABLE on DOS: 10/03/22 FINDINGS: Lines and Tubes: None Lungs: Prominent interstitial markings throughout the right chest. Worse than 03/08/2024 Pleura: No effusion. No pneumothorax. Cardiomediastinal contours: Unremarkable Bones: No acute osseous abnormality. IMPRESSION: 1. Increased interstitial markings throughout the right chest. Compared to 03/08/2024 ATED BY: BRENDAN BANGURA Jr., DO DICTATED DATE/TIME: 06/12/241410 SIGNED BY: BRENDAN BANGURA Jr., DO SIGNED DATE/TIME: 06/12/241410 CC: [place] [address] Ph: [phone] DIAGNOSTIC IMAGING Diagnostic Imaging Report : [id number] Signed PATIENT: ANALILIA GARLAND ACCT: [id number] UNIT: [id number] : 1940 LOC: ER ROOM / BED: / AGE / SEX: 83 / F ADM STATUS: REG ER SERVICE 123 ORDERING PHYSICIAN: KAYLEIGH EDWARDS MD PROCEDURE(s): HWOCT - HEAD WITHOUT CONTRAST REASON: [facility] ORDER NUMBER(s): [id number], ACCESSION NUMBER(s): [id number] CT HEAD WITHOUT CONTRAST INDICATION: [facility] EXAM DATE: 06/12/2024 01:36 PM COMPARISON: CT HEAD WITHOUT CONTRAST on DOS: 03/08/24, CT HEAD WITHOUT CONTRAST on DOS: 09/23/23, HEAD WITHOUT CONTRAST on DOS: 09/08/21 RADIATION DOSE: CTDIvol: 53.79 mGy, DLP: 971.73 mGy*cm PROCEDURE: CT scans of the head were obtained from the vertex to the skull base. Sagittal and coronal reconstructions were provided. All CT scans at this medical facility are performed using dose modulation techniques as appropriate to a performed exam including the following: Automated exposure control was utilized; adjustment of the MA and/or KV according to patient size; and use of iterative reconstruction technique. FINDINGS: There is sulcal and ventricular prominence. The brainshows normal morphology and blair-white matter differentiation, without intracranial hemorrhage, extra-axial fluid collection, mass effect or acute large vessel infarct. The ventricles are normal in size. The basal cisterns are patent. The skull and visible facial bones are intact. The paranasal sinuses, mastoid air cells and middle ear cavities are well-aerated. The soft tissues of the scalp are unremarkable. IMPRESSION: No acute intracranial abnormality. ATED BY: DELON TRISTAN MD DICTATED DATE/TIME: 06/12/241415 SIGNED BY: DELON TRISTAN MD SIGNED DATE/TIME: 06/12/241415 CC: Time of 1ST Reevaluation: 13:10 Reevaluation 1ST: Unchanged Patient Education/Counseling: Diagnosis, Treatment Family Education/Counseling: No Family Present Departure 1 Departure Time of Disposition: 14:52 (Patient presented with hypertension and symptoms concerning for hypertensive emergency. Patient is receiving iv blood pressure medications requiring intensive monitoring. Data: 1. I ordered and reviewed the result of at least 3 labs including a CBC, BMP, and Urinalysis. 2. I independently interpreted the following tests: CT Brain: Which appears benign. EKG which is atrial fibrillationRisk:This patient has a high risk of morbidity due to further diagnostic testing or treatment and may suffer from an acute cardiac disorder. Workup reveals hypertensive emergency and patient should be admitted for further workup. and possible expert consultation. ) Impression: Primary Impression: Hypertensive emergency Additional Impressions: Atrial fibrillation Qualified Codes: I48.11 - Longstanding persistent atrial fibrillation Metabolic encephalopathy Disposition: 09 ADMITTED INPATIENT Admit to: Tele Condition: Serious Critical Care Note Critical Care Time?: Yes Critical care comment: Hypertensive urgency Authorized and Performed by: Kayleigh Edwards MD Total critical care time: Approximately 38 minutes Due to a high probability of clinically significant, life threatening deterioration, the patient required my highest level of preparedness to intervene emergently and I personally spent this critical care time directly and personally managing the patient. This critical care time included obtaining a history; examining the patient; pulse oximetry; ordering and review of studies; arranging urgent treatment with development of a management plan; evaluation of patient's response to treatment; frequent reassessment; and, discussions with other providers. This critical care time was performed to assess and manage the high probability of imminent, life-threatening deterioration that could result in multi-organ failure. It was exclusive of separately billable procedures and treating other patients and teaching time. Please see my other sections and the rest of the note for further information on patient assessment and treatment. Stability Stability form required: No Heart Score Heart Score: Heart Score Response (Comments) Value History N/A 0 EKG N/A 0 Age N/A 0 Risk Factors N/A 0 Troponin N/A 0 Total 0 I personally scribed for KAYLEIGH EDWARDS MD ([email or web address]) on 06/12/24 at 12:48. Electronically submitted by Kaleigh Adames ([email or web address]). I personally scribed for KAYLEIGH EDWARDS MD ([email or web address]) on 06/12/24 at 14:16. Electronically submitted by Kaleigh Adames ([email or web address]). I personally scribed for KAYLEIGH EDWARDS MD ([email or web address]) on 06/12/24 at 14:50. Electronically submitted by Kaleigh Adames ([email or web address]). KAYLEIGH EDWARDS MD Jun 12, 2024 12:48
--- NOTE | 2024-06-12 12:57 | ECG ---
[facility] Test Date: 2024-06-12 Test Time: 12:49:51 Pat Name: ANALILIA GARLAND Department: ED Room: Gender: F Squirrel Man: ashley : 1940 Requested By: KAYLEIGH EDWARDS Order Number: [id number] Reading MD: Tha Rodas Measurements Intervals [place] Rate: 71 P: 0 AK: 0 QRS: 65 QRSD: 94 T: 26 QT: 401 QTc: 436 Interpretive Statements Atrial fibrillation Electronically Signed On 06-12-2024 15:14:44 PDT by Tha Rodas Please click the below link to view image of tracing.
[2024-06-12] MEDS: ACETAMINOPHEN 325 MG TAB PO ONE (13:20)
[2024-06-12] MEDS: ONDANSETRON HCL 4 MG/2 ML VIAL IV ONE (13:20)
[2024-06-12] MEDS: SODIUM CHLORIDE 0.9% 1,000 ML IV ONE (13:24)
[2024-06-12 13:45] LABS: Basophils # (auto) 0.1 10 ^3/uL (0-0.2); Basophils % (auto) 0.9 % (0.0-2.0); Eosinophils # (auto) 0.1 10 ^3/uL (0-0.8); Eosinophils % (auto) 1.2 % (0.0-7.0); Hematocrit 41.6 % (36.0-46.0); Hemoglobin 13.7 g/dL (12.2-16.2); Lymphocytes # (auto) 1.9 10 ^3/uL (0.4-5.4); Lymphocytes % (auto) 24.5 % (10.0-50.0); Mean Corpuscular Hemoglobin 31.5 pg (28.0-32.0); Mean Corpuscular Hgb Conc. 32.9 g/dL (32.0-36.0); Mean Corpuscular Volume 95.8 fL (80.0-100.0); Monocytes # (auto) 0.5 10 ^3/uL (0-1.3); Monocytes % (auto) 6.9 % (0.0-12.0); Neutrophils # (auto) 5.2 10 ^3/uL (1.6-8.6); Neutrophils % (auto) 66.5 % (37.0-80.0); Nucleated Red Blood Cells % 0.3 %; Platelet Count (auto) 199 10^3/uL (140-450); Red Blood Cells 4.34 10^6/uL (4.0-5.20); Red Cell Distribution Width 14.8 % (11.8-14.3); White Blood Cell 7.9 10^3/uL (4.4-10.8)
--- NOTE | 2024-06-12 13:51 | ECG ---
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
[2024-06-12 14:00] LABS: Alanine Aminotransferase 30 U/L (7-40); Albumin 4.5 g/dL (3.2-4.8); Alkaline Phosphatase 85 U/L (46-116); Anion Gap 9 (5-15); Aspartate Aminotransferase 30 U/L (13-40); BUN/Creatinine Ratio 21.8 (10.0-20.0); Bilirubin, Total 0.8 mg/dL (0.2-1.0); Blood Urea Nitrogen 22 mg/dL (9-23); Calcium 9.5 mg/dL (8.7-10.4); Carbon Dioxide 24 mmol/L (20-31); Chloride 104 mmol/L (98-107); Potassium 4.1 mmol/L (3.5-5.1); Sodium 137 mmol/L (136-145); Total Protein 6.8 g/dL (5.7-8.2)
[2024-06-12 14:04] LABS: Glucose 113 mg/dL (74-106)
--- NOTE | 2024-06-12 14:14 | DVH ---
CHEST RADIOGRAPH Indication: ams Technique: Single frontal view of the chest was obtained Comparison: XY CHEST PORTABLE on DOS: 09/21/23, XY CHEST PORTABLE on DOS: 10/03/22 FINDINGS: Lines and Tubes: None Lungs: Prominent interstitial markings throughout the right chest. Worse than 03/08/2024 Pleura: No effusion. No pneumothorax. Cardiomediastinal contours: Unremarkable Bones: No acute osseous abnormality. IMPRESSION: 1. Increased interstitial markings throughout the right chest. Compared to 03/08/2024
--- NOTE | 2024-06-12 14:19 | DVH ---
CT HEAD WITHOUT CONTRAST INDICATION: [facility] EXAM DATE: 06/12/2024 01:36 PM COMPARISON: CT HEAD WITHOUT CONTRAST on DOS: 03/08/24, CT HEAD WITHOUT CONTRAST on DOS: 09/23/23, HEAD WITHOUT CONTRAST on DOS: 09/08/21 RADIATION DOSE: CTDIvol: 53.79 mGy, DLP: 971.73 mGy*cm PROCEDURE: CT scans of the head were obtained from the vertex to the skull base. Sagittal and coronal reconstructions were provided. All CT scans at this medical facility are performed using dose modulation techniques as appropriate t o a performed exam including the following: Automated exposure control was utilized; adjustment of th e MA and/or KV according to patient size; and use of iterative reconstruction technique. FINDINGS: There is sulcal and ventricular prominence. The brainshows normal morphology and blair-whi te matter differentiation, without intracranial hemorrhage, extra-axial fluid collection, mass effect or acute large vessel infarct. The ventricles are normal in size. The basal cisterns are patent. The skull and visible facial bones are intact. The paranasal sinuses, mastoid air cells and middle ear c avities are well-aerated. The soft tissues of the scalp are unremarkable. IMPRESSION: No acute intracranial abnormality.
[2024-06-12] MEDS: hydrALAZINE HCL 20 MG/ML VL IV ONE (15:02)
[2024-06-12] MEDS: METOCLOPRAMIDE HCL 5MG/ml INJ 2ml VIAL IV ONE (15:24)
[2024-06-12] MEDS ORDERED: ACETAMINOPHEN 325 MG TAB PO PRN (15:30)
[2024-06-12] MEDS ORDERED: ONDANSETRON HCL 4 MG/2 ML VIAL IV PRN (15:30)
[2024-06-12] MEDS ORDERED: NITROGLYCERIN 0.4 MG SL TAB SL PRN (15:30)
[2024-06-12] MEDS ORDERED: MORPHINE SULFATE INJ 2 MG/ml SYRG IV PRN (15:30)
[2024-06-12 15:40] LABS: Urine Bacteria None Seen /hpf (None Seen)
[2024-06-12 15:53] LABS: Urine Blood TRACE /uL (Negative); Urine Clarity Clear (Clear); Urine Color Light-Yellow (Yellow); Urine Protein, UAD TRACE (Negative); Urine Specific Gravity 1.011 (1.001-1.035); Urine Squamous Epithelial Cell None Seen /hpf (<5); Urine Urobilinogen Normal (Negative); Urine WBC < 1 /HPF (0-5); Urine pH 5.5 (5.0-9.0)
[2024-06-12 16:00] LABS: Benzodiazephine Screen, Urine Neg (NEGATIVE)
[2024-06-12 16:22] LABS: Amphetamine Screen, Urine Neg (NEGATIVE); Barbiturate Scree,Urine Neg (NEGATIVE); Cannabinoid Screen, Urine Neg (NEGATIVE); Cocaine Screen, Urine Neg (NEGATIVE); Opiate Scree,Urine Neg (NEGATIVE); Phencyclidine Screen, Urine Neg (NEGATIVE)
[2024-06-12] MEDS: cloNIDine HCL 0.1 MG TAB PO ONE (16:28)
[2024-06-12] MEDS: METOPROLOL SUCCINATE XL 50 MG TAB PO ONE (16:29)
[2024-06-12] MEDS: SODIUM CHLORIDE 0.9% 1,000 ML IV SCH (16:29)
[2024-06-12] MEDS: LOSARTAN POTASSIUM 50 MG TAB PO SCH (21:54)
[2024-06-12 22:27] VITALS: PULSE 70; RESP 19; O2SAT 97
[2024-06-12 22:32] VITALS: BP 142/58; PULSE 67; RESP 18; RESP 20; TEMP 98.3; O2SAT 98
[2024-06-13] VITALS (10 sets, daily range): BP systolic 108–175; BP diastolic 42–78; PULSE 16–86; RESP 17–19; TEMP 97.3–99.3; O2SAT 93–98
[2024-06-13] MEDS: hydrALAZINE HCL 20 MG/ML VL IV PRN (05:25)
[2024-06-13] MEDS: cefTRIAXone 1GM/50ML D5W 50 ML IV SCH (08:47)
[2024-06-13] MEDS: METOPROLOL SUCCINATE XL 50 MG TAB PO SCH (08:48)
[2024-06-13] MEDS: FUROSEMIDE 20 MG TAB PO SCH (08:48)
[2024-06-13] MEDS: POTASSIUM CHL 10 Meq TABLET PO SCH (08:53)
[2024-06-13] MEDS: amLODIPine BESYLATE 5 MG TAB PO SCH (08:54)
[2024-06-13] MEDS: RIVAROXABAN 20 MG TAB PO SCH (08:54)
[2024-06-13] MEDS: LEVOTHYROXINE SODIUM 88 MCG TAB PO SCH (08:54)
--- NOTE | 2024-06-13 11:59 | DVHHP2 ---
History of Present Illness History of Present Illness 83 y/o F, presents to the ED for CC of ALOC. Per EMS, patient is coming from home where she was found to be disoriented by family members; last known normal was (06/10/24). EMS states, patient answers questions with a yes or no nod and is actively moaning in pain while holding her head; indicating possible headaches. Upon arrival to ED, patient is A&Ox2 no other symptoms or modifying factors obtainable at this time. Given her high blood pressure and confusion she has been brought into the hospital for blood pressure control and further evaluation of her mental status. Past Medical History AFIB, High Lipids, HTN Past Surgical History: Hysterectomy Family History: Hypertension Smoke: No ALCOHOL: none Lives: with Family Review of Systems Review of Systems No fevers chills or sweats. No shortness to breath. No recent travel. Other review of systems reviewed normal. Allergies: Coded Allergies: Doxycycline (Verified Allergy, Unknown, 10/03/22) Uncoded Allergies: CANDY INHIBITOR (Allergy, Unknown, 11/01/17) Medications Current Medications Medications Dose Ordered Sig/Oralia Route Start Time Stop Time Status Last Admin Dose Admin Amlodipine Besylate 5 mg DAILY PO 06/13/24 10:00 06/13/24 08:54 5 MG Furosemide 20 mg DAILY PO 06/13/24 10:00 06/13/24 08:48 20 MG Levothyroxine Sodium 88 mcg DAILY PO 06/13/24 10:00 06/13/24 08:54 88 MCG Losartan Potassium 50 mg BID PO 06/12/24 22:00 06/13/24 08:53 50 MG Potassium Chloride 10 meq DAILY PO 06/13/24 10:00 06/13/24 08:53 10 MEQ Rivaroxaban 20 mg DAILY PO 06/13/24 10:00 06/13/24 08:54 20 MG Nitroglycerin 0.4 mg Q5MINP PRN SL 06/12/24 15:30 Morphine Sulfate 2 mg Q30M PRN IV 06/12/24 15:30 Sodium Chloride 1,000 ml @ 60 mls/hr [id number] IV 06/12/24 15:30 06/13/24 08:47 60 MLS/HR Ceftriaxone Sodium 50 ml @ 100 mls/hr DAILY@09 IV 06/13/24 09:00 06/13/24 08:47 100 MLS/HR Ondansetron HCl 4 mg Q6HPRN PRN IV 06/12/24 15:30 Acetaminophen 650 mg Q4HP PRN PO 06/12/24 15:30 Metoprolol Succinate 50 mg DAILY PO 06/13/24 10:00 06/13/24 08:48 50 MG Hydralazine HCl 20 mg Q6HP PRN IV 06/12/24 15:30 06/13/24 05:25 20 MG Clonidine HCl 0.1 mg Q4HP PRN PO 06/12/24 15:30 Exam Vital Signs Vital Signs Date Time Temp Pulse Resp B/P (MAP) Pulse Ox O2 Delivery O2 Flow Rate FiO2 06/13/24 08:54 118/42 06/13/24 08:48 57 06/13/24 08:44 98.5 17 93 98.5 06/13/24 08:00 Room Air* 0 21 Exam Alert awake oriented to person. HEENT neck supple no JVD pupils equal round react to light. Heart regular rate and rhythm S1 and S2 no murmurs gallops. Lungs fair air movement chest tube will expansion no rales wheezes. Abdomen is soft nontender nondistended positive bowel sounds. Extremities no edema positive distal pedal pulses. Neurological no gross focal deficits noted. Labs/Xrays Labs Test 06/12/24 16:19 06/12/24 15:39 06/12/24 13:02 Range/Units Troponin I High Sensitivity 21 </=34 ng/L Urine Color Light-yellow Yellow Urine Clarity Clear Clear Urine pH 5.5 5.0-9.0 Urine Specific Dat[place] 1.011 1.001-1.035 Urine Protein Trace H Negative Urine Ketones Negative Negative Urine Blood Trace H Negative /uL Urine Nitrite Negative Negative Urine Bilirubin Negative Negative Urine Urobilinogen Normal Negative mg/dL Urine Leukocyte Esterase Negative Negative /uL Urine RBC 3 0 - 4 /hpf Urine Microscopic WBC < 1 0-5 /HPF Urine Squamous Epithelial Cells None seen <5 /hpf Urine Bacteria None seen None Seen /hpf Urine Glucose Normal Normal mg/dL Urine Opiates Screen Neg NEGATIVE Urine Fentanyl Screen Neg NEGATIVE Urine Barbiturates Screen Neg NEGATIVE Urine Phencyclidine Screen Neg NEGATIVE Urine Amphetamines Screen Neg NEGATIVE Urine Benzodiazepines Screen Neg NEGATIVE Urine Cocaine Screen Neg NEGATIVE Urine Cannabinoids Screen Neg NEGATIVE White Blood Count 7.9 4.4-10.8 10^3/uL Red Blood Count 4.34 4.0-5.20 10^6/uL Hemoglobin 13.7 12.2-16.2 g/dL Hematocrit 41.6 36.0-46.0 % Mean Corpuscular Volume 95.8 80.0-100.0 fL Mean Corpuscular Hemoglobin 31.5 28.0-32.0 pg Mean Corpuscular Hemoglobin Concent 32.9 32.0-36.0 g/dL Red Cell Distribution Width 14.8 H 11.8-14.3 % Platelet Count 199 140-450 10^3/uL Mean Platelet Volume 8.6 6.9-10.8 fL Neutrophils (%) (Auto) 66.5 37.0-80.0 % Lymphocytes (%) (Auto) 24.5 10.0-50.0 % Monocytes (%) (Auto) 6.9 0.0-12.0 % Eosinophils (%) (Auto) 1.2 0.0-7.0 % Basophils (%) (Auto) 0.9 0.0-2.0 % Neutrophils # (Auto) 5.2 1.6-8.6 10 ^3/uL Lymphocytes # (Auto) 1.9 0.4-5.4 10 ^3/uL Monocytes # (Auto) 0.5 0-1.3 10 ^3/uL Eosinophils # (Auto) 0.1 0-0.8 10 ^3/uL Basophils # (Auto) 0.1 0-0.2 10 ^3/uL Nucleated Red Blood Cells 0.3 % Sodium Level 137 136-145 mmol/L Potassium Level 4.1 3.5-5.1 mmol/L Chloride Level 104 98-107 mmol/L Carbon Dioxide Level 24 20-31 mmol/L Anion Gap 9 5-15 Blood Urea Nitrogen 22 9-23 mg/dL Creatinine 1.01 0.550-1.02 mg/dL Glomerular Filtration Rate Calc 55 >90 mL/min BUN/Creatinine Ratio 21.8 H 10.0-20.0 Serum Glucose 113 H 74-106 mg/dL Lactic Acid Level 1.3 0.4-2.0 mmol/L Calcium Level 9.5 8.7-10.4 mg/dL Total Bilirubin 0.8 0.2-1.0 mg/dL Aspartate Amino Transferase (AST) 30 13-40 U/L Alanine Aminotransferase (ALT) 30 7-40 U/L Alkaline Phosphatase 85 46-116 U/L Total Protein 6.8 5.7-8.2 g/dL Albumin 4.5 3.2-4.8 g/dL Assessment/Plan Assessment/Plan Her symptoms appears to be due to high blood pressure. Patient does have history of AFib with possible embolic stroke. However she was on anticoagulation at home. We will admit her and control her blood pressure. Monitor her mental status overnight. If her mentation does not improve we will consider MRI of the brain. Meantime continue her anticoagulation and cardiac medications. 2D echocardiogram. Continue rest of supportive care and treatment. We will send a urinalysis to make sure does not have any underlying infection. Further clinical management per clinical course. Plan discussed with: Other My Orders Orders - ANAND DEVRIES MD Procedure Category Date Status Time Amlodipine Tablet PHA 06/13/24 In Process (Norvasc Tablet) 10:00 Furosemide Tablet PHA 06/13/24 In Process (Lasix Tablet) 10:00 Levothyroxine Tablet PHA 06/13/24 In Process (Synthroid Tablet) 10:00 Losartan Tablet PHA 06/12/24 In Process (Cozaar Tablet) 22:00 Potassium Er Tablet PHA 06/13/24 In Process (Klor-Con Tablet) 10:00 Rivaroxaban Tablet PHA 06/13/24 In Process (Xarelto Tablet) 10:00 Admit ADMIT 06/12/24 Transmitted 15:25 Pt Request For Service PT 06/12/24 Logged 15:25 Nitroglycerin PHA 06/12/24 In Process Sublingual (Ntrostat 15:30 Morphine Sulfate PHA 06/12/24 In Process Injection 15:30 Stat Ekg For Chest NORBERT 06/12/24 In Process Pain 15:25 Notify Md Of Changes NORBERT 06/12/24 In Process From Base 15:25 Spray Foam Installer For NORBERT 06/12/24 In Process 24 Hours 15:25 Emergency Dysrhythmia NORBERT 06/12/24 In Process Protocol 15:25 Rhythm Strips Once NORBERT 06/12/24 In Process Every Shift 15:25 Oxygen By Nasal RT 06/12/24 Transmitted Cannula 15:25 Sodium Chloride 0.9% PHA 06/12/24 In Process 15:30 Ceftriaxone 1gm/50ml PHA 06/13/24 In Process D5w (Rocephin) 09:00 Ondansetron Hcl PHA 06/12/24 In Process (Zofran) 15:30 Acetaminophen Tablet PHA 06/12/24 In Process (Tylenol Tablet) 15:30 Metoprolol Xl PHA 06/13/24 In Process Succinate (Toprol Xl) 10:00 Hydralazine Injection PHA 06/12/24 In Process (Apresoline Inject 15:30 Clonidine Hcl Tablet PHA 06/12/24 In Process (Catapres Tablet) 15:30 * Superintendent [employer] CONS 06/12/24 Transmitted Consult 23:15 Cardiac DIET 06/13/24 Transmitted Diet-2gna,Lofat,Lochol Lunch Problem List: (1) Hypertension (2) Generalized weakness (3) Atrial fibrillation (4) Hypertensive emergency (5) Metabolic encephalopathy ANAND DEVRIES MD Jun 13, 2024 11:58
--- NOTE | 2024-06-13 12:52 | DVHPN2 ---
Progress Note - Dictate Date Seen: Jun 13, 2024 Medical Necessity Reason Pt with a Central, PICC or Fol: No Subjective Patient's mentation has significantly improved today. She knows where she is and what happened to her. Her granddaughter is at bedside. Talked to the granddaughter as well as patient's daughter over the phone regarding her condition and diagnosis and care plan. vital signs Vital Sign Date Time Temp Pulse Resp B/P (MAP) Pulse Ox O2 Delivery O2 Flow Rate FiO2 06/13/24 12:37 97.9 65 17 117/58 (77) 95 97.9 06/13/24 08:00 Room Air* 0 21 Total Intake and Output 06/12/24 06/12/24 06/13/24 15:00 23:00 07:00 Intake Total 1000 ml 300 ml 200 ml Output Total 1700 ml Balance 1000 ml 300 ml -1500 ml medications Current Medications Medications Dose Ordered Sig/Oralia Route Start Time Stop Time Status Last Admin Dose Admin Amlodipine Besylate 5 mg DAILY PO 06/13/24 10:00 06/13/24 08:54 5 MG Furosemide 20 mg DAILY PO 06/13/24 10:00 06/13/24 08:48 20 MG Levothyroxine Sodium 88 mcg DAILY PO 06/13/24 10:00 06/13/24 08:54 88 MCG Losartan Potassium 50 mg BID PO 06/12/24 22:00 06/13/24 08:53 50 MG Potassium Chloride 10 meq DAILY PO 06/13/24 10:00 06/13/24 08:53 10 MEQ Rivaroxaban 20 mg DAILY PO 06/13/24 10:00 06/13/24 08:54 20 MG Nitroglycerin 0.4 mg Q5MINP PRN SL 06/12/24 15:30 Morphine Sulfate 2 mg Q30M PRN IV 06/12/24 15:30 Sodium Chloride 1,000 ml @ 60 mls/hr [id number] IV 06/12/24 15:30 06/13/24 08:47 60 MLS/HR Ceftriaxone Sodium 50 ml @ 100 mls/hr DAILY@09 IV 06/13/24 09:00 06/13/24 08:47 100 MLS/HR Ondansetron HCl 4 mg Q6HPRN PRN IV 06/12/24 15:30 Acetaminophen 650 mg Q4HP PRN PO 06/12/24 15:30 Metoprolol Succinate 50 mg DAILY PO 06/13/24 10:00 06/13/24 08:48 50 MG Hydralazine HCl 20 mg Q6HP PRN IV 06/12/24 15:30 06/13/24 05:25 20 MG Clonidine HCl 0.1 mg Q4HP PRN PO 06/12/24 15:30 objective Alert awake oriented to place and person comfortable lying in bed without distress. Granddaughter and nurse at bedside. HEENT neck supple no JVD. Heart regular rate and rhythm S1-S2. Lungs fair air movement without any audible rales or wheezing. Abdomen obese soft positive bowel sounds extremities no edema neurologically no focal deficits. laboratory and microbiology Laboratory Tests 06/12/24 13:02 Test 06/12/24 13:02 Range/Units Serum Glucose 113 H 74-106 mg/dL Assessment/Plan Patient's mentation is improved. Possible TIA versus hypertensive encephalopathy. Urinalysis negative for infection. Therefore we will DC the IV Rocephin. Continue anticoagulation and blood pressure medications as she is on. Continue physical therapy. Patient apparently lives alone with a caregiver. Daughter and granddaughter requesting in-home support services and possible boarding care/placement. Therefore we will have social Service consultation to discuss the options with the patient and family. Meantime continue physical therapy. We will DC the Hunter catheter. Continue rest of supportive care and treatment. Further clinical management per clinical course. Problems(with codes): (1) Generalized weakness (2) Atrial fibrillation (3) TIA (transient ischemic attack) (4) Hypertension Plan discussed with: Patient, Daughter, Other ANAND DEVRIES MD Jun 13, 2024 12:52
--- NOTE | 2024-06-13 16:43 | DVH ---
PROCEDURE: MRI BRAIN HEAD WO CONTRAST INDICATION: aloc EXAM DATE: 06/13/2024 03:59 PM COMPARISON: None TECHNIQUE: MRI of the brain without intravenous contrast. FINDINGS: Limited by motion. Small focus of restricted diffusion in the right frontal subcortical white matter. There is no evidence of acute intracranial hemorrhage, extra-axial collection, mass effect, midline s hift, herniation or hydrocephalus. The ventricles, sulci and cisterns appear age appropriate. Moderate to advanced changes of chronic microvascular ischemic disease. Empty sella. There are no signal abnormalities on the susceptibility weighted sequences. The major vascular flow voids are present. The visualized paranasal sinuses and mastoid air cells are clear. The surrounding soft tissues and o sseous structures are unremarkable. IMPRESSION: 1. Small focus of restricted diffusion in the right frontal subcortical white matter consistent with an acute / subacute infarct. Clinical correlation and continued follow-up is recommended. 2. Moderate to advanced changes of chronic microvascular ischemic disease. Empty sella. HS:Y
[2024-06-13] MEDS: LOSARTAN POTASSIUM 50 MG TAB PO SCH (22:03)
[2024-06-13] MEDS: LORazepam 2MG/ML-1ML VIAL IM ONE (22:45)
[2024-06-14] VITALS (9 sets, daily range): BP systolic 135–184; BP diastolic 58–91; PULSE 63–95; RESP 16–19; TEMP 97.6–98.7; O2SAT 96–99
[2024-06-14] MEDS: cloNIDine HCL 0.1 MG TAB PO PRN (01:23)
--- NOTE | 2024-06-14 07:57 | DVHINCON2 ---
Date of Service if different f: Jun 14, 2024 Time of Service: 06:59 Consultation ([facility]) Consulting Physician: CLIVE BARNES MD Labs Laboratory Tests Test 06/12/24 13:02 06/12/24 15:39 06/12/24 16:19 White Blood Count 7.9 10^3/uL (4.4-10.8) Red Blood Count 4.34 10^6/uL (4.0-5.20) Hemoglobin 13.7 g/dL (12.2-16.2) Hematocrit 41.6 % (36.0-46.0) Mean Corpuscular Volume 95.8 fL (80.0-100.0) Mean Corpuscular Hemoglobin 31.5 pg (28.0-32.0) Mean Corpuscular Hemoglobin Concent 32.9 g/dL (32.0-36.0) Red Cell Distribution Width 14.8 % (11.8-14.3) Platelet Count 199 10^3/uL (140-450) Mean Platelet Volume 8.6 fL (6.9-10.8) Neutrophils (%) (Auto) 66.5 % (37.0-80.0) Lymphocytes (%) (Auto) 24.5 % (10.0-50.0) Monocytes (%) (Auto) 6.9 % (0.0-12.0) Eosinophils (%) (Auto) 1.2 % (0.0-7.0) Basophils (%) (Auto) 0.9 % (0.0-2.0) Neutrophils # (Auto) 5.2 10 ^3/uL (1.6-8.6) Lymphocytes # (Auto) 1.9 10 ^3/uL (0.4-5.4) Monocytes # (Auto) 0.5 10 ^3/uL (0-1.3) Eosinophils # (Auto) 0.1 10 ^3/uL (0-0.8) Basophils # (Auto) 0.1 10 ^3/uL (0-0.2) Nucleated Red Blood Cells 0.3 % Sodium Level 137 mmol/L (136-145) Potassium Level 4.1 mmol/L (3.5-5.1) Chloride Level 104 mmol/L (98-107) Carbon Dioxide Level 24 mmol/L (20-31) Anion Gap 9 (5-15) Blood Urea Nitrogen 22 mg/dL (9-23) Creatinine 1.01 mg/dL (0.550-1.02) Glomerular Filtration Rate Calc 55 mL/min (>90) BUN/Creatinine Ratio 21.8 (10.0-20.0) Serum Glucose 113 mg/dL (74-106) Lactic Acid Level 1.3 mmol/L (0.4-2.0) Calcium Level 9.5 mg/dL (8.7-10.4) Total Bilirubin 0.8 mg/dL (0.2-1.0) Aspartate Amino Transf (AST/SGOT) 30 U/L (13-40) Alanine Aminotransferase (ALT/SGPT) 30 U/L (7-40) Alkaline Phosphatase 85 U/L (46-116) Total Protein 6.8 g/dL (5.7-8.2) Albumin 4.5 g/dL (3.2-4.8) Urine Color Light-yellow (Yellow) Urine Clarity Clear (Clear) Urine pH 5.5 (5.0-9.0) Urine Specific [place] 1.011 (1.001-1.035) Urine Protein Trace (Negative) Urine Ketones Negative (Negative) Urine Blood Trace /uL (Negative) Urine Nitrite Negative (Negative) Urine Bilirubin Negative (Negative) Urine Urobilinogen Normal mg/dL (Negative) Urine Leukocyte Esterase Negative /uL (Negative) Urine RBC 3 /hpf (0 - 4) Urine Microscopic WBC < 1 /HPF (0-5) Urine Squamous Epithelial Cells None seen /hpf (<5) Urine Bacteria None seen /hpf (None Seen) Urine Glucose Normal mg/dL (Normal) Urine Opiates Screen Neg (NEGATIVE) Urine Fentanyl Screen Neg (NEGATIVE) Urine Barbiturates Screen Neg (NEGATIVE) Urine Phencyclidine Screen Neg (NEGATIVE) Urine Amphetamines Screen Neg (NEGATIVE) Urine Benzodiazepines Screen Neg (NEGATIVE) Urine Cocaine Screen Neg (NEGATIVE) Urine Cannabinoids Screen Neg (NEGATIVE) Troponin I High Sensitivity 21 ng/L (</=34) Microbiology Date/Time Source Procedure Growth Status 06/12/24 13:02 Blood Blood Culture - Preliminary NO GROWTH AFTER 24 HOURS OF INCUBATION. Resulted Appearance: Stated age Psychomotor activity: WNL Behavioral: Cooperative Eye contact: Appropriate Speech: WNL Affect: Appropriate, Mood Congruent Mood: Euthymic Thought processes: Linear/Goal-directed Thought content: Hallucinations (visual) Suicidal ideations: Absent Homicidal ideations: Absent Orientation: Person, Place, Time, Situation Memory intact: Recent Intellect: Average Abstractability: WNL Concentration: Adequate Attention: Adequate Judgement: WNL Insight: Good Vitals Vital Signs Date Time Temp Pulse Resp B/P (MAP) Pulse Ox O2 Delivery O2 Flow Rate FiO2 06/14/24 05:35 78 147/85 (105) 06/14/24 05:00 97.7 19 96 97.7 06/13/24 20:00 Room Air* 0 21 Current medications Current Medications Medications Dose Ordered Sig/Oralia Route Start Time Stop Time Status Last Admin Dose Admin Amlodipine Besylate 5 mg DAILY PO 06/13/24 10:00 06/13/24 08:54 5 MG Furosemide 20 mg DAILY PO 06/13/24 10:00 06/13/24 08:48 20 MG Levothyroxine Sodium 88 mcg DAILY PO 06/13/24 10:00 06/13/24 08:54 88 MCG Potassium Chloride 10 meq DAILY PO 06/13/24 10:00 06/13/24 08:53 10 MEQ Rivaroxaban 20 mg DAILY PO 06/13/24 10:00 06/13/24 08:54 20 MG Nitroglycerin 0.4 mg Q5MINP PRN SL 06/12/24 15:30 Morphine Sulfate 2 mg Q30M PRN IV 06/12/24 15:30 Ondansetron HCl 4 mg Q6HPRN PRN IV 06/12/24 15:30 Acetaminophen 650 mg Q4HP PRN PO 06/12/24 15:30 Metoprolol Succinate 50 mg DAILY PO 06/13/24 10:00 06/13/24 08:48 50 MG Clonidine HCl 0.1 mg Q4HP PRN PO 06/12/24 15:30 06/14/24 01:23 0.1 MG Losartan Potassium 25 mg BID PO 06/13/24 22:00 06/13/24 22:03 25 MG Treatment plan discussed: With staff Medication adjusted: Yes Labs ordered: No Psychotherapy provided: Yes Type: Voluntary History of Present Illness Reason for Consult : psychiatric evaluation PER H&P: 83 y/o F, presents to the ED for CC of ALOC. Per EMS, patient is coming from home where she was found to be disoriented by family members; last known normal was (06/10/24). EMS states, patient answers questions with a yes or no nod and is actively moaning in pain while holding her head; indicating possible headaches. Upon arrival to ED, patient is A&Ox2 no other symptoms or modifying factors obtainable at this time. Given her high blood pressure and confusion she has been brought into the hospital for blood pressure control and further evaluation of her mental status. Past Medical History AFIB, High Lipids, HTN Past Surgical History: Hysterectomy Family History: Hypertension Smoke: No ALCOHOL: none Lives: with Family PSYCHIATRIST HPI: The patient was seen and evaluated at [facility] via telepsychiatry platform. 83 yr old female reported she has visual hallucinations that occur in the evening. She said it first occurred when she woke from sleep. She said they "always occur at night when I go to bed." She said they become a little darker and go from being smiling to being menacing. She said they first occurred when her . She said these occur sometimes every night and other times more sporadically. She reported she has poot sleep. She said she gets 3-6 hrs of sleep. She often wakes in the middle of the night. She had a TIA when she was about 76 [address] decided not to drive at that time. She still prepares her own meals and takes care of her own finances. She has an aide who helps take care of her house. She denied having suicidal ideation, plan or intent and denied having HI/AH. Past Psychiatric History : No past hospitalizations or suicide attempts. Current medications: blood pressure medication, zyrtec, levothyroxine. Allergy to CANDY inhibitor, doxycycline Substance use: Denied use of alcohol and other substances. Social History : Lives In [place]. 68 years and 05/02. 5 Children. Diagnosis: UNSPECIFIED PSYCHOTIC DISORDER Formulation: This 83 yr old female appears to suffer from visual hallucinations which seem to be around bedtime, so could be hypnagogic (while going to sleep) or hypnapompic (while waking up) hallucinations. If she is sleep deprived, they are more likely to happen. They also could be related to delirium. She may benefit starting a sleep medication such as low dose trazodone and a low dose antipsychotic to reduce the visual hallucinations. Plan: 1.I recommend avoiding benzodiazepines and antihistamines in elderly patients as they can exacerbate cognitive decline and contribute to fall risk. If her visual hallucinations are related to a medical condition, such as a delirium, they likely would resolve once the delirium is corrected. In these cases a low dose antipsychotic such as Risperdal 0.25mg qhs or Seroquel 25mg qhs can help reduce the hallucinations. Since her hallucinations are at night, I think nighttime dosing is the best. She appears to have difficulty maintaining sleep so would benefit from being on a hypnotic such as Trazodone 25mg qhs or Mirtazapine 7.5mg qhs. If she has low weight, failure to thrive or little appetite, I'd recommend mirtazapine since it tends to increase appetite. For someone who is overweight or not having appetite issues, I recommend trazodone. 2. Medical decision making-she appears to have medical decision making capability. She stated her daughter has medical power of trial attorney. 3. Medications: recommend starting Trazodone 25mg qhs prn for sleep Risperdal 0.25mg qhs for hallucinations. 4. Case discussed with Team SUSSY Crawford. 5. Please recontact psychiatry for further follow up or reevaluation. Assessment/Diagnosis/Plan Reviewed: Labs, Medications, Previous Orders CLIVE BARNES MD Jun 14, 2024 07:01
--- NOTE | 2024-06-14 15:22 | DVHPN2 ---
Progress Note - Dictate Date Seen: Jun 14, 2024 Medical Necessity Reason Pt with a Central, PICC or Fol: No Subjective Patient's mentation has significantly improved today. Says she is having hallucinations seeing things. Denies any double vision or blurred vision. MRI of the brain shows mild/small acute ischemic stroke vital signs Vital Sign Date Time Temp Pulse Resp B/P (MAP) Pulse Ox O2 Delivery O2 Flow Rate FiO2 06/14/24 12:30 172/76 06/14/24 12:30 97.9 86 16 98 97.9 06/14/24 08:00 Room Air* 0 21 Total Intake and Output 06/13/24 06/13/24 06/14/24 15:00 23:00 07:00 Intake Total 450 ml 480 ml 750 ml Output Total 800 ml 300 ml Balance 450 ml -320 ml 450 ml medications Current Medications Medications Dose Ordered Sig/Oralia Route Start Time Stop Time Status Last Admin Dose Admin Amlodipine Besylate 5 mg DAILY PO 06/13/24 10:00 06/14/24 08:14 5 MG Furosemide 20 mg DAILY PO 06/13/24 10:00 06/14/24 08:15 20 MG Levothyroxine Sodium 88 mcg DAILY PO 06/13/24 10:00 06/14/24 08:17 88 MCG Potassium Chloride 10 meq DAILY PO 06/13/24 10:00 06/14/24 08:17 10 MEQ Rivaroxaban 20 mg DAILY PO 06/13/24 10:00 06/14/24 08:17 20 MG Nitroglycerin 0.4 mg Q5MINP PRN SL 06/12/24 15:30 Morphine Sulfate 2 mg Q30M PRN IV 06/12/24 15:30 Ondansetron HCl 4 mg Q6HPRN PRN IV 06/12/24 15:30 Acetaminophen 650 mg Q4HP PRN PO 06/12/24 15:30 Metoprolol Succinate 50 mg DAILY PO 06/13/24 10:00 06/14/24 08:16 50 MG Clonidine HCl 0.1 mg Q4HP PRN PO 06/12/24 15:30 06/14/24 12:30 0.1 MG Losartan Potassium 25 mg BID PO 06/13/24 22:00 06/14/24 08:16 25 MG objective Alert awake oriented to place and person comfortable walking in the hallway with a walker. HEENT neck supple no JVD. No nystagmus. Pupils equal round react to light. Heart regular rate and rhythm S1-S2. Lungs fair air movement without any audible rales or wheezing. Abdomen obese soft positive bowel sounds extremities no edema neurologically no focal deficits. laboratory and microbiology Laboratory Tests 06/12/24 13:02 Test 06/12/24 13:02 Range/Units Serum Glucose 113 H 74-106 mg/dL Assessment/Plan Patient's mentation is improved. Possible TIA versus hypertensive encephalopathy. Continue embolic stroke prevention with the anticoagulation and beta-olman as she is on. Patient had a tele psych evaluation for hallucinations and recommended trial of Risperdal. Therefore I will start this tonight. And monitor her overnight and if she remains stable consider discharge home tomorrow. I have talked with the patient as well as patient's daughter over the phone regarding her MRI findings, hospital diagnosis and care plan. Discussed with the nurse regarding care plan at bedside as well Dietary Evaluation Review Comments: Continue current plan of care Expected Outcomes/Goals: Pt will meet >75% estimated needs Fu 3-5 days Plan discussed with: Patient, Daughter ANAND DEVRIES MD Jun 14, 2024 15:22
[2024-06-14] MEDS: risperiDONE 1 MG TAB PO SCH (22:00)
[2024-06-15] VITALS (8 sets, daily range): BP systolic 121–158; BP diastolic 56–75; PULSE 62–82; RESP 15–18; TEMP 97.4–97.8; O2SAT 94–98
[2024-06-15 04:44] LABS: Urine Bacteria FEW /hpf (None Seen); Urine Blood 3+ /uL (Negative); Urine Clarity Turbid (Clear); Urine Color Light-Brown (Yellow); Urine Protein, UAD TRACE (Negative); Urine Squamous Epithelial Cell None Seen /hpf (<5); Urine Urobilinogen Normal (Negative); Urine WBC 3 /HPF (0-5)
[2024-06-15 07:55] LABS: Basophils # (auto) 0.1 10 ^3/uL (0-0.2); Basophils % (auto) 0.9 % (0.0-2.0); Eosinophils # (auto) 0.1 10 ^3/uL (0-0.8); Eosinophils % (auto) 1.2 % (0.0-7.0); Hematocrit 36.9 % (36.0-46.0); Hemoglobin 12.8 g/dL (12.2-16.2); Lymphocytes # (auto) 1.7 10 ^3/uL (0.4-5.4); Lymphocytes % (auto) 23.2 % (10.0-50.0); Mean Corpuscular Hemoglobin 32.2 pg (28.0-32.0); Mean Corpuscular Hgb Conc. 34.6 g/dL (32.0-36.0); Mean Corpuscular Volume 93.1 fL (80.0-100.0); Monocytes # (auto) 0.6 10 ^3/uL (0-1.3); Monocytes % (auto) 8.2 % (0.0-12.0); Neutrophils # (auto) 4.9 10 ^3/uL (1.6-8.6); Neutrophils % (auto) 66.5 % (37.0-80.0); Nucleated Red Blood Cells % 0.1 %; Platelet Count (auto) 178 10^3/uL (140-450); Red Blood Cells 3.97 10^6/uL (4.0-5.20); Red Cell Distribution Width 14.3 % (11.8-14.3); White Blood Cell 7.4 10^3/uL (4.4-10.8)
[2024-06-15 08:03] LABS: Anion Gap 11 (5-15); Carbon Dioxide 24 mmol/L (20-31); Chloride 105 mmol/L (98-107); Sodium 140 mmol/L (136-145)
[2024-06-15 08:04] LABS: Calcium 9.4 mg/dL (8.7-10.4)
[2024-06-15 08:06] LABS: Potassium 3.4 mmol/L (3.5-5.1)
[2024-06-15 08:09] LABS: BUN/Creatinine Ratio 18.9 (10.0-20.0); Blood Urea Nitrogen 17 mg/dL (9-23); Glucose 102 mg/dL (74-106)
--- NOTE | 2024-06-15 13:42 | DVH ---
CHEST RADIOGRAPH Indication: SOB Technique: Single frontal view of the chest was obtained Comparison: XY CHEST PORTABLE on DOS: 06/12/24, XY CHEST PORTABLE on DOS: 09/21/23, XY CHEST PORTABLE on DOS: 10/03/22 FINDINGS: Lines and Tubes: None Lungs: No focal consolidation. Pleura: No effusion. No pneumothorax. Cardiomediastinal contours: Unremarkable Bones: No acute osseous abnormality. IMPRESSION: No acute cardiopulmonary disease.
[2024-06-15] MEDS ORDERED: RISP0.5T17 PO (15:51)
--- NOTE | 2024-06-15 15:52 | DVHDS2 ---
Discharge Summary Date of Admission Jun 12, 2024 at 15:25 Date of Discharge: Jun 15, 2024 Labs/Diagnostic Data: Laboratory Results Test 06/15/24 07:05 06/15/24 04:27 06/12/24 16:19 06/12/24 15:39 White Blood Count 7.4 10^3/uL (4.4-10.8) Red Blood Count 3.97 10^6/uL (4.0-5.20) Hemoglobin 12.8 g/dL (12.2-16.2) Hematocrit 36.9 % (36.0-46.0) Mean Corpuscular Volume 93.1 fL (80.0-100.0) Mean Corpuscular Hemoglobin 32.2 pg (28.0-32.0) Mean Corpuscular Hemoglobin Concent 34.6 g/dL (32.0-36.0) Red Cell Distribution Width 14.3 % (11.8-14.3) Platelet Count 178 10^3/uL (140-450) Mean Platelet Volume 8.5 fL (6.9-10.8) Neutrophils (%) (Auto) 66.5 % (37.0-80.0) Lymphocytes (%) (Auto) 23.2 % (10.0-50.0) Monocytes (%) (Auto) 8.2 % (0.0-12.0) Eosinophils (%) (Auto) 1.2 % (0.0-7.0) Basophils (%) (Auto) 0.9 % (0.0-2.0) Neutrophils # (Auto) 4.9 10 ^3/uL (1.6-8.6) Lymphocytes # (Auto) 1.7 10 ^3/uL (0.4-5.4) Monocytes # (Auto) 0.6 10 ^3/uL (0-1.3) Eosinophils # (Auto) 0.1 10 ^3/uL (0-0.8) Basophils # (Auto) 0.1 10 ^3/uL (0-0.2) Nucleated Red Blood Cells 0.1 % Sodium Level 140 mmol/L (136-145) Potassium Level 3.4 mmol/L (3.5-5.1) Chloride Level 105 mmol/L (98-107) Carbon Dioxide Level 24 mmol/L (20-31) Anion Gap 11 (5-15) Blood Urea Nitrogen 17 mg/dL (9-23) Creatinine 0.90 mg/dL (0.550-1.02) Glomerular Filtration Rate Calc 63 mL/min (>90) BUN/Creatinine Ratio 18.9 (10.0-20.0) Serum Glucose 102 mg/dL (74-106) Calcium Level 9.4 mg/dL (8.7-10.4) Urine Color Light-brown (Yellow) Urine Clarity Turbid (Clear) Urine pH 6.0 (5.0-9.0) Urine Specific [place] 1.010 (1.001-1.035) Urine Protein Trace (Negative) Urine Ketones Negative (Negative) Urine Blood 3+ /uL (Negative) Urine Nitrite Negative (Negative) Urine Bilirubin Negative (Negative) Urine Urobilinogen Normal mg/dL (Negative) Urine Leukocyte Esterase Negative /uL (Negative) Urine RBC 589 /hpf (0 - 4) Urine Microscopic WBC 3 /HPF (0-5) Urine Squamous Epithelial Cells None seen /hpf (<5) Urine Bacteria Few /hpf (None Seen) Urine Glucose Normal mg/dL (Normal) Troponin I High Sensitivity 21 ng/L (</=34) Urine Opiates Screen Neg (NEGATIVE) Urine Fentanyl Screen Neg (NEGATIVE) Urine Barbiturates Screen Neg (NEGATIVE) Urine Phencyclidine Screen Neg (NEGATIVE) Urine Amphetamines Screen Neg (NEGATIVE) Urine Benzodiazepines Screen Neg (NEGATIVE) Urine Cocaine Screen Neg (NEGATIVE) Urine Cannabinoids Screen Neg (NEGATIVE) Test 06/12/24 13:02 Lactic Acid Level 1.3 mmol/L (0.4-2.0) Total Bilirubin 0.8 mg/dL (0.2-1.0) Aspartate Amino Transferase (AST) 30 U/L (13-40) Alanine Aminotransferase (ALT) 30 U/L (7-40) Alkaline Phosphatase 85 U/L (46-116) Total Protein 6.8 g/dL (5.7-8.2) Albumin 4.5 g/dL (3.2-4.8) Other Laboratory Tests 06/15/24 07:05 Brief Hx & Hospital Course: 83 y/o F, presents to the ED for CC of ALOC. Per EMS, patient is coming from home where she was found to be disoriented by family members; last known normal was (06/10/24). EMS states, patient answers questions with a yes or no nod and is actively moaning in pain while holding her head; indicating possible headaches. Upon arrival to ED, patient is A&Ox2 no other symptoms or modifying factors obtainable at this time. Given her high blood pressure and confusion she has been brought into the hospital for blood pressure control and further evaluation of her mental status. She is admitted and underwent MRI and showed acute to subacute stroke. Patient has chronic atrial fibrillation therefore on anticoagulation to prevent stroke at home. She was advised to continue the anticoagulation as she is on. Her urinalysis in the hospital did not reveal any significant urinary tract infection. Her white cell count is normal. She was afebrile. Patient's mentation has improved while in the hospital. Patient medication reviewed and she was appeared to be taking baclofen felt is also contributing to her confusion. Therefore she was given instructions to discontinue this at home. Otherwise patient is getting out of bed ambulating. Back to baseline normal status. Patient's hallucinations also improved. Patient did not want to taking Risperdal as recommended by psychiatrist. I have talked to patient as well as family members including daughter granddaughter during this hospitalization on multiple occasions in person and over the phone regarding her hospital diagnosis, treatment she received, discharge medications, discharge instructions and follow-up plan of care. They have verbalized understanding of these and agree with the care plan as outlined. Consults/Reason for consult EXAM: Two-dimensional and M-mode echocardiogram with Doppler and color Doppler. Blood Pressure: 203/102 mmHg INDICATION Hypertension RISK FACTORS Height: 64, Weight: 229 DIMENSIONS LVDd (3.8-5.7cm) LA (2D) 4.7 (1.9-4.0cm) Aortic Root (2.0-3.7cm) EF (%) 52.0 (55-70%) Rt. Atrium 4.9 (1.9-4.0cm) Asc. Aorta cm Mitral Valve Mitral Mitral Stenosis E wave 1.23m/s MV Mean GR. mmHg A wave m/s MV Peak GR. 99mmHg E/A ratio 0.0 2D MVA cm2 Aortic Valve Aortic Valve Aortic Stenosis V1 0.97m/s AO Mean GR. 7mmHg V2 1.70m/s AO Peak GR. 12mmHg Tricuspid Valve TR Velocity 3.66m/s RVSP 57mmHg Other Information Technically limited study due to body habitus, patient position, patient moving and ALOC. Conclusion Technically good study. Difficult acoustic windows off axis views. Limited views obtained. Undetermined rhythm. Biatrial enlargement. Concentric LVH. Mild mitral annular calcification. Mild aortic sclerosis. Valves are difficult to discern. Left ventricular systolic function is preserved at 55% with normal RV function. [id number] MR. Moderate tricuspid regurgitation. Right ventricular systolic pressure of 60 mmHg consistent with significant pulmonary hypertension. No pericardial effusion masses or vegetations. SIGNED BY: RUBY ZHANG Sr., MD SIGNED DATE/TIME: 06/16/24 1136 Operations or Procedures PROCEDURE: MRI BRAIN HEAD WO CONTRAST INDICATION: aloc EXAM DATE: 06/13/2024 03:59 PM COMPARISON: None TECHNIQUE: MRI of the brain without intravenous contrast. FINDINGS: Limited by motion. Small focus of restricted diffusion in the right frontal subcortical white matter. There is no evidence of acute intracranial hemorrhage, extra-axial collection, mass effect, midline shift, herniation or hydrocephalus. The ventricles, sulci and cisterns appear age appropriate. Moderate to advanced changes of chronic microvascular ischemic disease. Empty sella. There are no signal abnormalities on the susceptibility weighted sequences. The major vascular flow voids are present. The visualized paranasal sinuses and mastoid air cells are clear. The surrounding soft tissues and osseous structures are unremarkable. IMPRESSION: 1. Small focus of restricted diffusion in the right frontal subcortical white matter consistent with an acute / subacute infarct. Clinical correlation and continued follow-up is recommended. 2. Moderate to advanced changes of chronic microvascular ischemic disease. Empty sella. HS:Y Condition at Discharge: Stable Final Diagnosis/Problems List acute cva, hallucinations Discharge Disposition: Home with Health Services Discharge Instruct/Medications Diet: Consistent carbohydrate, Cardiac 2g Na,low cholest Activity: No Restrictions, As Tolerated Follow Up/Referral: PCP next week and NEurologist Dr.Sonia Kelly 2-3 weeks follow up stroke/hallucinations Medications: STop baclofen at home. take other medications as per discharge med list New Medications: Risperidone (Risperdal) 0.5 Mg Tab 0.5 TAB PO QPM PRN, #10 TAB take 1/2 a table for hallucinations as needed Continued Medications: Alprazolam (Xanax) 0.25 Mg Tb 1 TAB PO PRN, #30 TAB Amlodipine Besylate (Amlodipine Besylate) 5 Mg Tab 5 MG PO DAILY, MG Atenolol (Atenolol) 50 Mg Tab 50 MG PO BID, MG Furosemide (Lasix) 20 Mg Tb 1 TAB PO DAILY, #30 TAB 5 Refills Levothyroxine Sodium (Synthroid) 88 Mcg Tab 1 TAB PO DAILY, #30 TAB 5 Refills Losartan Potassium (Losartan Potassium) 50 Mg Tab 50 MG PO BID for 30 Days, MG Potassium Chloride (K-Tabs) 10 Meq Tab 10 MEQ PO DAILY, TAB Rivaroxaban (Xarelto) 20 Mg Tab 1 TAB PO DAILY, #30 TAB 11 Refills Discontinued Medications: Baclofen (Baclofen) 10 Mg Tab 10 MG PO BID, MG Cyclobenzaprine HCl (Cyclobenzaprine Hydrochlo) 10 Mg Tab 5 MG PO Q8HPRN PRN, #14 TAB Meclizine HCl (Antivert) 25 Mg Chw 25 MG PO QIDPRN, #20 TAB.CHEW Prednisone (Prednisone) 20 Mg Tab 40 MG PO DAILY, #10 MG Tramadol Hcl (Tramadol Hcl) 50 Mg Tab 50 MG PO BID, MG Discharge Statement: "Patient was advised to return to the ER or call 911 if any headaches, dizziness, shortness of breath, chest pain, abdominal pain, bleeding, fevers, or worsening of medical condition. Patient was counseled about treatment plan, medications, possible side effects, patientverbalized understanding. All questions were answered to the best of my ability. This discharge took greater then 30 minutes in planning, reviewing documentation, counseling the patient, and discussing with other team members." ASSESSMENT ASSESSMENT Assessment acute cva, hallucinations ANAND DEVRIES MD Jun 15, 2024 15:52
--- NOTE | 2024-06-16 11:36 | DVHSR ---
APPROVED REPORT EXAM: Two-dimensional and M-mode echocardiogram with Doppler and color Doppler. Blood Pressure: 203/102 mmHg INDICATION Hypertension RISK FACTORS Height: 64, Weight: 229 DIMENSIONS LVDd (3.8-5.7cm)LA (2D)4.7 (1.9-4.0cm)Aortic Root (2.0-3.7cm) EF (%) 52.0 (55-70%)Rt. Atrium4.9 (1.9-4.0cm)Asc. Aorta cm Mitral Valve MitralMitral Stenosis E wave1.23m/sMV Mean GR.mmHg A wavem/sMV Peak GR.99mmHg E/A ratio0.02D MVAcm2 Aortic Valve Aortic ValveAortic Stenosis V10.97m/Nadia Mean GR.7mmHg V21.70m/Nadia Peak GR.12mmHg Tricuspid Valve TR Velocity3.66m/s [id number] Other Information Technically limited study due to body habitus, patient position, patient moving and ALOC. Conclusion Technically good study. Difficult acoustic windows off axis views. Limited views obtained. Undeter mined rhythm. Biatrial enlargement. Concentric LVH. Mild mitral annular calcification. Mild aortic sclerosis. Valves are difficult to discern. Left ventricular systolic function is preserved at 55% with normal RV function. [id number] MR. Moderate tricuspid regurgitation. Right ventricular systolic pressure of 60 mm Hg consistent with significant pulmonary hypertension. No pericardial effusion masses or vegetations.
== END 2024-06-15 19:10 | disposition home health service (06) | DRG 64 ==
LOC: ER 12:35 → EDBD 12:35 → OVERFLOW 15:25 → TELE-WESTW 22:32
PROVIDERS: ADMIT Hospitalist; ATTEND Hospitalist
DX: I63.9 Cerebral infarction, unspecified (principal); G93.41 Metabolic encephalopathy; N30.01 Acute cystitis with hematuria; I10 Essential (primary) hypertension; I48.91 Unspecified atrial fibrillation; Z90.710 Acquired absence of both cervix and uterus; Z88.1 Allergy status to other antibiotic agents; Z82.49 Family history of ischemic heart disease and other diseases of the circulatory system; Z79.01 Long term (current) use of anticoagulants; Z63.4 Disappearance and death of family member; Z79.899 Other long term (current) drug therapy
CPT/HCPCS: 36415; 70450; 70551; 71045; 80048; 80053; 80307; 81001; 83605; 84484; 85025; 87040; 87086; 93005; 93306; 96361; 96374; 97110; 97116; 97163; 97530; 99291; G0378; J2405